=== PATIENT | female | born 1940 | race Caucasian/White ===

== ENCOUNTER 2016-05-09 10:34 | Outpatient (CLI) ==
[2016-05-09 11:07] LABS: BASOPHILS % (AUTO) 0.4 % (0.0-3.0); EOSINOPHILS # (AUTO) 0.4 K/ul (0.0-0.7); EOSINOPHILS % (AUTO) 5.7 % (0.0-7.0); HEMATOCRIT 40.6 % (37.0-47.0); HEMOGLOBIN 13.4 g/dl (12.0-16.0); IMMATURE GRANULOCYTE % (AUTO) 0.5 % (0.0-5.0); LYMPHOCYTES # (AUTO) 2.1 K/uL (0.60-3.4); LYMPHOCYTES % (AUTO) 27.3 (10.0-50.0); MEAN CORPUSCULAR HEMOGLOBIN 28.2 pg (27.0-31.0); MEAN CORPUSCULAR VOLUME 85.5 fl (81.0-99.0); MONOCYTES # (AUTO) 0.4 K/uL (0.4-2.0); MONOCYTES % (AUTO) 4.7 (0-10); NEUTROPHILS # (AUTO) 4.8 K/ul (2.0-6.9); NEUTROPHILS % (AUTO) 61.4; PLATELET COUNT 229 10^3/uL (140-440); RED BLOOD COUNT 4.75 10^6/ul (4.20-5.40); WHITE BLOOD COUNT 7.73 K/ul (4.6-10.2)
[2016-05-09 11:24] LABS: BILIRUBIN,URINE Negative (NEGATIVE); KETONES,URINE Negative (NEGATIVE); LEUKOCYTE ESTERASE ,URINE Negative (NEGATIVE); NITRITE,URINE Negative (NEGATIVE); PH,URINE 6.5 (5-9); PROTEIN,URINE Negative (NEGATIVE); URINE, BLOOD Negative (NEGATIVE)
[2016-05-09 11:38] LABS: ADD URINE MICROSCOPIC NO
[2016-05-09 11:50] LABS: ALBUMIN 3.3 g/dL (3.4-5.0); ALBUMIN/GLOBULIN RATIO 0.92; ANION GAP 13.1; BILIRUBIN,TOTAL 0.51 mg/dL (0.00-1.20); BUN/CREATININE RATIO 18.18; CALCIUM 9.2 mg/dL (8.2-10.2); CHOL/HDL RATIO 3.5 (4.5-5.5); CREATININE 1.32 mg/dL (0.60-1.30); POTASSIUM 4.1 mmol/L (3.5-5.10); TOTAL PROTEIN 6.9 g/dL (5.8-8.1)
--- NOTE | 2016-05-09 11:59 | DI ---
EXAM: Two views of the chest. History: Short of breath Findings: Heart size is normal. No focal consolidation. No appreciable pleural fluid and no pneum othorax. Atherosclerotic vascular calcifications. Degenerative changes of the thoracic spine. Impression: No acute cardiopulmonary process.
== END 2016-05-09 10:35 | disposition home or self-care (01) ==
LOC: CAR 10:34
PROVIDERS: ATTEND Family Medicine
DX: I10 Essential (primary) hypertension (principal); E11.9 Type 2 diabetes mellitus without complications; E78.5 Hyperlipidemia, unspecified; I48.91 Unspecified atrial fibrillation; R06.02 Shortness of breath; I25.10 Atherosclerotic heart disease of native coronary artery without angina pectoris; E66.9 Obesity, unspecified; N18.9 Chronic kidney disease, unspecified; N30.00 Acute cystitis without hematuria; F01.50 Vascular dementia, unspecified severity, without behavioral disturbance, psychotic disturbance, mood disturbance, and anxiety; I50.9 Heart failure, unspecified
CPT/HCPCS: 36415; 80053; 80061; 81001; 83036; 83880; 84439; 84443; 85025; 93005; 93010

== ENCOUNTER 2016-06-24 10:13 | Outpatient (CLI) ==
--- NOTE | 2016-06-24 10:59 | US ---
EXAM: Carotid ultrasound HISTORY: Hypertension, vertigo, diabetes mellitus COMPARISON: 06/24/2015 TECHNIQUE: Carotid ultrasound was performed using van scale, color, and Doppler imaging was perfor med. FINDINGS: Right carotid: There is mild atherosclerotic plaque with visual estimate of narrowing less than 50% . Peak systolic velocity measurement in the proximal right internal carotid artery is 0.8 meters pe r second. End-diastolic velocity measurement in the right internal carotid artery is 0.1 meters per second. Right internal to common carotid artery peak systolic velocity ratio is 1.0. Mildly increa sed velocity of the distal aspect internal carotid artery at 1.3 meters per second likely due to tor tuous vessel without visualized narrowing in this region. Flow in the right vertebral artery is ante grade. Left carotid: There is mild atherosclerotic plaque with visual estimate of narrowing less than 50%. Peak systolic velocity measurement in the left internal carotid artery is 0.8 meters per second. End-diastolic velocity measurement in the left internal carotid artery is 0.2 meters per second. Le ft internal to common carotid artery peak systolic velocity ratio measures 1.0. Mildly increased jess ocity of the distal aspect internal carotid artery at 1.4 meters per second likely due to tortuous v essel without visualized narrowing in this region. Left vertebral artery not visualized. IMPRESSION: 1. Right internal carotid: Probably mild (less than 50%) stenosis 2. Left internal carotid: Probably mild (less than 50%) stenosis. 3. Left vertebral artery not visualized. On the prior examination, antegrade flow was demonstrated in the left vertebral artery. 4. Antegrade flow right vertebral artery.
== END 2016-06-24 10:14 | disposition home or self-care (01) ==
LOC: RAD 10:13
PROVIDERS: ATTEND Family Medicine
DX: E03.9 Hypothyroidism, unspecified (principal); I10 Essential (primary) hypertension; E11.9 Type 2 diabetes mellitus without complications; R42 Dizziness and giddiness; E66.9 Obesity, unspecified

== ENCOUNTER 2016-07-12 07:26 | Outpatient (CLI) ==
[2016-07-12 08:24] LABS: BASOPHILS # (AUTO) 0.1 K/uL (0-0.2); BASOPHILS % (AUTO) 0.8 % (0.0-3.0); EOSINOPHILS # (AUTO) 0.4 K/ul (0.0-0.7); EOSINOPHILS % (AUTO) 5.5 % (0.0-7.0); HEMATOCRIT 40.2 % (37.0-47.0); HEMOGLOBIN 13.4 g/dl (12.0-16.0); IMMATURE GRANULOCYTE % (AUTO) 0.1 % (0.0-5.0); LYMPHOCYTES # (AUTO) 2.6 K/uL (0.60-3.4); LYMPHOCYTES % (AUTO) 32.9 (10.0-50.0); MEAN CORPUSCULAR HEMOGLOBIN 28.3 pg (27.0-31.0); MEAN CORPUSCULAR HGB CONC 33.3 (31.8-35.4); MONOCYTES # (AUTO) 0.4 K/uL (0.4-2.0); NEUTROPHILS # (AUTO) 4.4 K/ul (2.0-6.9); NEUTROPHILS % (AUTO) 55.7; PLATELET COUNT 235 10^3/uL (140-440); RED BLOOD COUNT 4.73 10^6/ul (4.20-5.40); WHITE BLOOD COUNT 7.87 K/ul (4.6-10.2)
[2016-07-12 08:30] LABS: BILIRUBIN,URINE Negative (NEGATIVE); KETONES,URINE Negative (NEGATIVE); LEUKOCYTE ESTERASE ,URINE Negative (NEGATIVE); NITRITE,URINE Negative (NEGATIVE); PH,URINE 5.5 (5-9); PROTEIN,URINE Negative (NEGATIVE); URINE, BLOOD Negative (NEGATIVE)
[2016-07-12 08:33] LABS: ADD URINE MICROSCOPIC NO
[2016-07-12 10:02] LABS: ALBUMIN 3.3 g/dL (3.4-5.0); ALBUMIN/GLOBULIN RATIO 0.97; ANION GAP 11.4; BILIRUBIN,TOTAL 0.64 mg/dL (0.00-1.20); BUN/CREATININE RATIO 16.15; CALCIUM 9.5 mg/dL (8.2-10.2); CHOL/HDL RATIO 3.2 (4.5-5.5); CREATININE 1.3 mg/dL (0.60-1.30); POTASSIUM 4.4 mmol/L (3.5-5.10); TOTAL PROTEIN 6.7 g/dL (5.8-8.1)
== END 2016-07-12 07:27 | disposition home or self-care (01) ==
LOC: LAB 07:26
PROVIDERS: ATTEND Family Medicine
DX: I10 Essential (primary) hypertension (principal); E11.9 Type 2 diabetes mellitus without complications; E03.9 Hypothyroidism, unspecified; E66.9 Obesity, unspecified; Z79.899 Other long term (current) drug therapy
CPT/HCPCS: 36415; 80053; 80061; 81001; 84439; 84443; 85025

== ENCOUNTER 2016-08-10 08:36 | Outpatient (CLI) ==
[2016-08-10 09:56] LABS: ERYTHROCYTE SEDIMENTATION RATE 35 mm/hr (0-20); ESR INTERNAL QC INTERNAL QC VALID
[2016-08-10 10:14] LABS: MAGNESIUM 1.7 mg/dL (1.7-2.2)
[2016-08-10 11:23] LABS: FOLATE 33.3 ng/mL (3.1-20.5)
== END 2016-08-10 08:37 | disposition home or self-care (01) ==
LOC: LAB 08:36
PROVIDERS: ATTEND Psychiatry & Neurology Neurology
DX: R41.3 Other amnesia (principal)
CPT/HCPCS: 36415; 82607; 82746; 83735; 84439; 85651

== ENCOUNTER 2016-09-16 07:49 | Outpatient (CLI) ==
[2016-09-16 08:29] LABS: BASOPHILS # (AUTO) 0.1 K/uL (0-0.2); BASOPHILS % (AUTO) 0.8 % (0.0-3.0); BILIRUBIN,URINE 1+ (NEGATIVE); EOSINOPHILS # (AUTO) 0.4 K/ul (0.0-0.7); EOSINOPHILS % (AUTO) 4.9 % (0.0-7.0); HEMATOCRIT 38.8 % (37.0-47.0); IMMATURE GRANULOCYTE % (AUTO) 0.3 % (0.0-5.0); KETONES,URINE Negative (NEGATIVE); LEUKOCYTE ESTERASE ,URINE Negative (NEGATIVE); LYMPHOCYTES # (AUTO) 2.1 K/uL (0.60-3.4); LYMPHOCYTES % (AUTO) 27.9 (10.0-50.0); MEAN CORPUSCULAR HEMOGLOBIN 28.2 pg (27.0-31.0); MEAN CORPUSCULAR HGB CONC 33.5 (31.8-35.4); MEAN CORPUSCULAR VOLUME 84.2 fl (81.0-99.0); MONOCYTES # (AUTO) 0.4 K/uL (0.4-2.0); MONOCYTES % (AUTO) 5.3 (0-10); NEUTROPHILS # (AUTO) 4.6 K/ul (2.0-6.9); NEUTROPHILS % (AUTO) 60.8; NITRITE,URINE Negative (NEGATIVE); PH,URINE 5.5 (5-9); PLATELET COUNT 220 10^3/uL (140-440); PROTEIN,URINE Negative (NEGATIVE); RED BLOOD COUNT 4.61 10^6/ul (4.20-5.40); URINE, BLOOD Negative (NEGATIVE); WHITE BLOOD COUNT 7.55 K/ul (4.6-10.2)
[2016-09-16 08:31] LABS: ADD URINE MICROSCOPIC NO
[2016-09-16 09:06] LABS: ALBUMIN 3.4 g/dL (3.4-5.0); ALBUMIN/GLOBULIN RATIO 1.1; ANION GAP 14.9; BILIRUBIN,TOTAL 0.9 mg/dL (0.00-1.20); BUN/CREATININE RATIO 17.6; CALCIUM 9.3 mg/dL (8.2-10.2); CHOL/HDL RATIO 3.1 (4.5-5.5); CREATININE 1.42 mg/dL (0.60-1.30); POTASSIUM 3.9 mmol/L (3.5-5.10); TOTAL PROTEIN 6.5 g/dL (5.8-8.1)
== END 2016-09-16 07:50 | disposition home or self-care (01) ==
LOC: LAB 07:49
PROVIDERS: ATTEND Family Medicine
DX: E78.5 Hyperlipidemia, unspecified (principal); I48.91 Unspecified atrial fibrillation; E66.9 Obesity, unspecified; I25.10 Atherosclerotic heart disease of native coronary artery without angina pectoris; N30.00 Acute cystitis without hematuria; F01.50 Vascular dementia, unspecified severity, without behavioral disturbance, psychotic disturbance, mood disturbance, and anxiety; I13.10 Hypertensive heart and chronic kidney disease without heart failure, with stage 1 through stage 4 chronic kidney disease, or unspecified chronic kidney disease; E11.22 Type 2 diabetes mellitus with diabetic chronic kidney disease; N18.9 Chronic kidney disease, unspecified; Z79.899 Other long term (current) drug therapy
CPT/HCPCS: 36415; 80053; 80061; 81001; 83036; 84439; 84443; 85025

== ENCOUNTER 2024-02-26 14:05 | Inpatient (IN) ==
--- NOTE | 2024-02-26 14:52 | ED.PDOC ---
General ED Provider: Dr. KIARA CARROLL MD Chief Complaint: Non-specific Complaint Stated Complaint: 83 yo WF brought in by EMS after calls when patient has difficulty getting around with her walker. Hx of dementia, DM, HTN and Afib and on Xarelto. said patient usually have some difficulty getting up out of a chair when seated but today, she had some problem moving her legs in a coordinating gait. She uses a walker. No falls recently. He reports her appetite not so good and not eating since the evening meals. Patient herself said she feels "fine" and no pain. Denies thirst. No cough or fever. No chest pain. Time Seen by Provider: 02/26/24 14:36 Mode of Arrival: Ambulance Information Source: Patient and Family Exam Limitations: Dementia Primary Care Provider: RAUL ABDULLAHI MD Referred to ED by: Other (family) Nursing and Triage Documentation Reviewed and Agree: Yes Does Patient Take Opioids?: No What is Opioid Naive?: *Opioid Naive implies the patient is not already taking opioids or not chronically receiving opioids on a daily basis. *PRN dosing is not "usually" associated with tolerance. *Patients are at higher risk of over-sedation and aspiration. What is Opioid Tolerant?: *Opioid Tolerance implies less than the expected response to an opioid. *Acquired tolerance is defined by the patient taking 60mg of oral morphine daily (or equianalgesic dose of another opioid) for 1 week or more. *Often associated with chronic pain. *May take more than usual dose to achieve desired pain control. Review of Systems Review Of Systems Constitutional: Reports Weakness and Loss of appetite; Denies Chills or Fever Eyes: Reports No symptoms Respiratory: Denies Cough or Shortness of Breath Cardiac: Denies Chest pain or Syncope GI: Denies Abdominal pain or Vomiting : Denies Hematuria Musculoskeletal: Denies Back pain, Joint pain or Joint swelling Skin: Reports No symptoms Neurological: Reports Cognitive dysfunction; Denies Emotional problems or Headache PFSH Family History FATHER Diabetes Mother CHF (congestive heart failure) SISTER COVID-19 vlad hauler COVID Cardiac abnormality Social History Smoking and tobacco status: Never smoker Alcohol intake: never Substance use type: does not use Special irma needs: No Agree to transfusion: Yes Adopted: No Caregiver/support person: No Foster care: No Household members: spouse Housing: apartment Marital status: M Lives independently: Yes Daycare: no daycare Number of children: 0 Current occupational status: retired History of recent travel: No Do you think of yourself as: straight/heterosexual Current gender identity: female Seatbelt use: sometimes Drives intoxicated or rides with intoxicated pick up driver: No Water heater temperature set < 120 degrees: Yes Working smoke detector in home: Yes Fire extinguisher in home: No Carbon monoxide detector in home: No Firearms in home: No Physical Exam Physical Exam Appearance: Reports Well-appearing, No pain distress and Obese Ill-appearing: None Pain Distress: None Eyes: Reports LESLIE and EOMI ENT: Reports Ears normal, Nose normal and Oropharynx normal Neck: Supple Respiratory: Reports Airway patent, Breath sounds equal and Respirations nonlabored; Denies Breath sounds diminished, Wheezes or Retractions Cardiovascular: Reports RRR, Pulses normal, No rub and No murmur GI/: Reports Soft, Nontender, No masses and Bowel sounds normal; Denies Tender or Mass Musculoskeletal: Reports Normal strength, ROM intact and No calf tenderness Skin: Reports Warm, Dry and Normal color Neurological: Reports Motor intact Psychiatric: Reports Affect appropriate, Mood appropriate and Other (laughs when grabbing my fingers on command. Able to grab fingers with both hand when asked to do Finger to nose testing) Course Course 02/26/24 15:16 02/26/24 15:16 Orders, Labs, Meds: Lab Review 02/26/24 02/26/24 15:10 15:16 WBC 10.66 H RBC 4.28 Hgb 10.6 L Hct 35.8 L MCV 83.6 MCH 24.8 L MCHC 29.6 L RDW Coeff of Temo 17.4 H Plt Count 251 Immature Gran % (Auto) 0.4 Neut % (Auto) 83.5 H Lymph % (Auto) 8.4 L [place] % (Auto) 6.3 Eos % (Auto) 1.1 Baso % (Auto) 0.3 Neut # (Auto) 8.9 H Lymph # (Auto) 0.9 [place] # (Auto) 0.7 Eos # (Auto) 0.1 Baso # (Auto) 0.0 Immature Gran # (Auto) 0.0 Sodium 137.6 Potassium 3.96 Chloride 102.1 Carbon Dioxide 25.2 Anion Gap 14.26 BUN 35.6 H Creatinine 2.68 H Estimated GFR (MDRD) 17.00 BUN/Creatinine Ratio 13.28 Glucose 173.3 H Calcium 9.37 Total Bilirubin 0.86 AST 19.1 ALT 12.9 Alkaline Phosphatase 65.6 Total Protein 6.78 Albumin 3.76 Globulin 3.02 Albumin/Globulin Ratio 1.24 Urine Color Yellow Urine Clarity Cloudy Urine pH 5.5 Ur Specific [place] 1.025 Urine Protein Negative Urine Glucose (UA) Negative Urine Ketones Negative Urine Blood Trace-intact H Urine Nitrite Negative Urine Bilirubin Negative Urine Urobilinogen 0.2 Ur Leukocyte Esterase 1+ H Urine Microscopic WBC 20-30 Ur Squamous Epith Cells 10-20 Amorphous Sediment 3+ Urine Bacteria 4+ Hyaline Casts 0-2 Orders Category Date Time Status Saline Lock [ED IV/MEDIPORT/POWERPORT] .ONCE EMERGENCY 02/26/24 14:45 Active CBC W/ AUTO DIFF Stat LAB 02/26/24 15:16 Completed CMP [COMPREHENSIVE METABOLIC PANEL] Stat LAB 02/26/24 15:16 Completed COVID [SARS COV-2 RNA RAPID RUBY] Stat LAB 02/26/24 16:36 Ordered URINALYSIS C & S IF INDICATED Stat LAB 02/26/24 15:10 Completed URINE CULTURE Stat LAB 02/26/24 15:10 Received 0.9 % Sodium Chloride [Saline Flush] Meds 02/26/24 14:45 Active 1 syr IVF PRN PRN Ceftriaxone/D5w 1 gm Premix [Rocephin 1 gm/50 ml D5w] Meds 02/26/24 16:30 Active 1 gm in 50 ml IV DAILY Sodium Chloride 0.9% [Sodium Chloride] 1,000 ml Meds 02/26/24 15:34 Active IV 125 mls/hr CHEST, 1V AP ONLY Stat RADS 02/26/24 15:[address] HEAD W/O CONTRAST Stat RADS 02/26/24 14:45 Completed Medications Generic Name Dose Route Start Last Admin Trade Name Freq PRN Reason Stop Dose Admin Sodium Chloride 1,000 mls @ 125 mls/hr 02/26/24 15:34 Sodium Chloride IV 02/26/24 23:33 .Q8H ONE CEFTRIAXONE/D5W 1 GM PREMIX 1 gm in 50 mls @ 100 mls/hr 02/26/24 16:30 Rocephin 1 Gm/50 Ml D5w IV 02/29/24 16:29 DAILY ROCKY Sodium Chloride 1 syr 02/26/24 14:45 0.9% Sodium Chloride 10 Ml Disp.Syrin IVF PRN PRN To flush IV Abdullahi's office notified about OBS admit. Discussed with Sharita Henderson, hospitalist, and will admit. Reviewed her chemistry compared to previous Vital Signs: Temp Pulse Resp BP Pulse Ox 02/26/24 14:07 97.6 F 65 20 134/58 L 95 Discharge Plan Discharge Patient Disposition: PLACED OBSERVATION Discharge Problem: Weakness, Urinary tract infection, Chronic kidney disease (CKD) Did you review [place] [employer] for ALL controlled substances?: Not Applicable ED Provider: KIARA CARROLL Condition: Fair
--- NOTE | 2024-02-26 15:18 | CT ---
EXAMINATION: HEAD CT WITHOUT CONTRAST HISTORY: Altered mental status. On xarelto. TECHNIQUE: Noncontrast CT of the brain was performed with images acquired from skull base to vertex. 2-D coronal and sagittal reformatted images were obtained from the axial source images. Contrast Dose: None. CT Dose Reduction Techniques Performed: Yes. COMPARISON: 12/17/2022 FINDINGS: No intracranial hemorrhage. No mass, mass effect or extra-axial fluid collection. There is age-rela yaakov parenchymal volume loss with resultant prominence of the supratentorial CSF spaces. No hydroceph alous. The basal cisterns are patent. Patchy areas of white matter hypoattenuation are nonspecific but favored to represent sequelae of chronic small vessel ischemic disease. No acute territorial inf arct. The paranasal sinuses and mastoid air cells are clear. No calvarial fracture or suspicious os seous lesion. IMPRESSION: 1. No acute intracranial process. 2. Stable parenchymal atrophy and chronic microvascular disease. All CT scans are performed using dose optimization techniques as appropriate to the performed exam an d include at least one of the following: Automated exposure control, adjustment of the mA and/or kV according t o size, and the use of iterative reconstruction technique.
[2024-02-26 15:20] LABS: BASOPHILS % (AUTO) 0.3 % (0.0-3.0); EOSINOPHILS # (AUTO) 0.1 K/ul (0.0-0.7); EOSINOPHILS % (AUTO) 1.1 % (0.0-7.0); HEMATOCRIT 35.8 % (37.0-47.0); HEMOGLOBIN 10.6 g/dl (12.0-16.0); IMMATURE GRANULOCYTE % (AUTO) 0.4 % (0.0-5.0); LYMPHOCYTES # (AUTO) 0.9 K/uL (0.60-3.4); LYMPHOCYTES % (AUTO) 8.4 (10.0-50.0); MEAN CORPUSCULAR HEMOGLOBIN 24.8 pg (27.0-31.0); MEAN CORPUSCULAR HGB CONC 29.6 (31.8-35.4); MEAN CORPUSCULAR VOLUME 83.6 fl (81.0-99.0); MONOCYTES # (AUTO) 0.7 K/uL (0.4-2.0); MONOCYTES % (AUTO) 6.3 (0-10); NEUTROPHILS # (AUTO) 8.9 K/ul (2.0-6.9); NEUTROPHILS % (AUTO) 83.5 % (42.2-75.2); PLATELET COUNT 251 10^3/uL (140-440); RDW COEFFICIENT OF VARIATION 17.4 % (11.6-14.8); RED BLOOD COUNT 4.28 10^6/ul (4.20-5.40); WHITE BLOOD COUNT 10.66 K/ul (4.6-10.2)
[2024-02-26 15:27] LABS: BILIRUBIN,URINE Negative (NEGATIVE); CLARITY,URINE Cloudy (CLEAR); COLOR,URINE Yellow (YELLOW); GLUCOSE, URINE (UA) Negative (NEGATIVE); KETONES,URINE Negative (NEGATIVE); LEUKOCYTE ESTERASE ,URINE 1+ (NEGATIVE); NITRITE,URINE Negative (NEGATIVE); PH,URINE 5.5 (5-9); PROTEIN,URINE Negative (NEGATIVE); URINE, BLOOD Trace-intact (NEGATIVE); UROBILINOGEN,URINE 0.2 (0.2)
[2024-02-26 15:35] LABS: AMORPHOUS SEDIMENT,UR 3+ (NOT PRESENT); BACTERIA,URINE 4+ (NOT PRESENT); HYALINE CASTS, URINE 0-2 (NOT PRESENT); URINE WBC, MICROSCOPIC 20-30 (0-2)
[2024-02-26 15:38] LABS: ALANINE AMINOTRANSFERASE 12.9 U/L (0-35); ALBUMIN 3.76 g/dL (3.5-5.0); ALKALINE PHOSPHATASE 65.6 U/L (53-141); ASPARTATE AMINO TRANSFERASE 19.1 U/L (14-36); BILIRUBIN,TOTAL 0.86 mg/dL (0.2-1.3); BLOOD UREA NITROGEN 35.6 mg/dL (7-17); CALCIUM 9.37 mg/dL (8.4-10.2); CARBON DIOXIDE 25.2 mmol/L (22-30.0); CHLORIDE 102.1 mmol/L (98-107); CREATININE 2.68 mg/dL (0.60-1.30); GLUCOSE 173.3 mg/dL (74-106); POTASSIUM 3.96 mmol/L (3.5-5.1); SODIUM 137.6 mmol/L (134.5-145); TOTAL PROTEIN 6.78 g/dL (6.3-8.2)
--- NOTE | 2024-02-26 15:53 | DI ---
EXAM: CHEST RADIOGRAPH TECHNIQUE: Single frontal chest radiograph. HISTORY: Weakness. COMPARISON: 10/12/2023 FINDINGS: No pulmonary infiltrate is identified. No pleural effusion or pneumothorax is seen. Heart size is normal. No acute displaced rib fractures are identified. IMPRESSION: 1. No acute findings in the chest.
[2024-02-26] MEDS ORDERED: ZOFRAN SDV IVP PRN (16:39)
[2024-02-26] MEDS ORDERED: TYLENOL PO PRN (16:39)
[2024-02-26] MEDS: SODIUM CHLORIDE 1,000 ML IV ONE (16:45)
[2024-02-26] MEDS: ROCEPHIN 1 GM/50 ML D5W 1 GM/50 ML BAG IV SCH (16:46)
[2024-02-26 16:54] LABS: SARS COV-2 RNA RAPID NAAT NEGATIVE (NEGATIVE)
[2024-02-26 18:14] VITALS: BMI 33.8
[2024-02-26] MEDS: LIPITOR PO SCH (19:48)
[2024-02-26] MEDS: XARELTO PO SCH (19:48)
[2024-02-26] MEDS: NAMENDA PO SCH (20:26)
[2024-02-27] MEDS: ATIVAN IVP ONE (01:15)
[2024-02-27 05:19] LABS: BASOPHILS % (AUTO) 0.4 % (0.0-3.0); EOSINOPHILS # (AUTO) 0.1 K/ul (0.0-0.7); EOSINOPHILS % (AUTO) 1.6 % (0.0-7.0); HEMATOCRIT 31.6 % (37.0-47.0); HEMOGLOBIN 9.4 g/dl (12.0-16.0); IMMATURE GRANULOCYTE % (AUTO) 0.1 % (0.0-5.0); LYMPHOCYTES # (AUTO) 1.2 K/uL (0.60-3.4); LYMPHOCYTES % (AUTO) 15.3 (10.0-50.0); MEAN CORPUSCULAR HEMOGLOBIN 24.6 pg (27.0-31.0); MEAN CORPUSCULAR HGB CONC 29.7 (31.8-35.4); MEAN CORPUSCULAR VOLUME 82.7 fl (81.0-99.0); MONOCYTES # (AUTO) 0.6 K/uL (0.4-2.0); MONOCYTES % (AUTO) 7.7 (0-10); NEUTROPHILS # (AUTO) 5.8 K/ul (2.0-6.9); NEUTROPHILS % (AUTO) 74.9 % (42.2-75.2); PLATELET COUNT 217 10^3/uL (140-440); RDW COEFFICIENT OF VARIATION 17.5 % (11.6-14.8); RED BLOOD COUNT 3.82 10^6/ul (4.20-5.40); WHITE BLOOD COUNT 7.67 K/ul (4.6-10.2)
[2024-02-27] MEDS: SYNTHROID PO SCH (05:23)
[2024-02-27 05:33] LABS: ALANINE AMINOTRANSFERASE 12.1 U/L (0-35); ALBUMIN 3.29 g/dL (3.5-5.0); ALKALINE PHOSPHATASE 56.4 U/L (53-141); ASPARTATE AMINO TRANSFERASE 22.7 U/L (14-36); BILIRUBIN,TOTAL 0.56 mg/dL (0.2-1.3); BLOOD UREA NITROGEN 33.4 mg/dL (7-17); CALCIUM 8.77 mg/dL (8.4-10.2); CARBON DIOXIDE 26.2 mmol/L (22-30.0); CHLORIDE 105.6 mmol/L (98-107); CREATININE 2.45 mg/dL (0.60-1.30); POTASSIUM 4.05 mmol/L (3.5-5.1); SODIUM 137.1 mmol/L (134.5-145); TOTAL PROTEIN 6.19 g/dL (6.3-8.2)
[2024-02-27] MEDS: FERROUS SULFATE PO SCH (09:16)
[2024-02-27] MEDS: DITROPAN XL PO SCH (09:16)
[2024-02-27] MEDS: COZAAR PO SCH (09:17)
[2024-02-27] MEDS: ARICEPT PO SCH (09:17)
[2024-02-27] MEDS: TOPROL XL PO SCH (09:17)
[2024-02-27] MEDS: ROCEPHIN 1 GM/50 ML D5W 1 GM/50 ML BAG IV SCH (09:18)
[2024-02-27] MEDS: LANTUS SUBCUT SCH (09:56)
--- NOTE | 2024-02-27 12:11 | PCM ---
Date of Service Date Seen by Provider: 02/27/24 Time Seen by Provider: 08:45 Admit Day/Time Admission Date: 02/26/24 Admission Time: 16:37 Reason for Admission Chief Complaint: WEAKNESS, UTI, ACUTE ON CHRONIC KIDNEY INJURY Hospital Provider Hospital Provider: ALEX MENDOZA PA-C, [facility] [place] [facility] Care Physician Primary Care Physician: RAUL NEWTON MD History of Present Illness History of Present Illness: Patient is an 83 year old female from home with pmhx of hypertension, DMT2, a fib, hypothyroidism, CKD, and dementia who presented to the ER with weakness. Patient's provides the history due to patient's dementia. He states she was having difficulty getting out of her chair. Her gait was unsteady. She's also had decreased appetite. He was worried she could have a UTI as this is common for her. In the ER her labs were unremarkable except for mildly elevated wbc count, and UA showed suspect UTI. She was given rocephin. Admitted to med surg. Case Discussed With Case Discussed With: Patient's case was discussed with the ER Physicians, Dr. Zapata. [facility] Surgical History History of breast biopsy Z98.890 - Other specified postprocedural states (ICD-10) History of appendectomy Z90.49 - Acquired absence of other specified parts of digestive tract (ICD- 10) Family History FATHER Diabetes Mother CHF (congestive heart failure) SISTER COVID-19 long hauler COVID Cardiac abnormality Social History Smoking and tobacco status: Never smoker Alcohol intake: never Substance use type: does not use Special irma needs: No Agree to transfusion: Yes Adopted: No Caregiver/support person: No Foster care: No Household members: spouse Housing: apartment Marital status: M Lives independently: Yes Daycare: no daycare Number of children: 0 Current occupational status: retired History of recent travel: No Do you think of yourself as: straight/heterosexual Current gender identity: female Seatbelt use: sometimes Drives intoxicated or rides with intoxicated school bus driver/teacher assistant: No Water heater temperature set < 120 degrees: Yes Working smoke detector in home: Yes Fire extinguisher in home: No Carbon monoxide detector in home: No Firearms in home: No Allergies Allergies Allergy/AdvReac Type Severity Reaction Status Date / Time No Known Allergies Allergy Verified 12/18/23 10:00 Current Medications Home Medications atorvastatin 20 mg tablet 20 mg PO DAILY 04/26/21 [History Confirmed 02/26/24 Last Taken 02/24/24] pen needle, diabetic 31 gauge x 3/16" (BD Ultra-Fine Mini Pen Needle) #100 inserts 02/07/23 [Rx Confirmed 02/26/24 Last Taken Unknown] nystatin 100,000 unit/gram topical cream 1 applic topical BID #30 grams 06/29/23 [Rx Confirmed 02/26/24 Last Taken 02/24/24] insulin aspart (niacinamide)(U-100) 100 unit/mL(3 mL) subcutaneous pen (Fiasp FlexTouch U-100 Insulin) 13 unit subcut QACLUNCH #15 mL 07/10/23 [Rx Confirmed 02/26/24 Last Taken 02/24/24] insulin lispro 100 unit/mL subcutaneous pen (Humalog KwikPen (U-100) Insulin) 13 unit (0.13 mL) subcut ONCE #15 mL 07/10/23 [Rx Confirmed 02/26/24 Last Taken 02/24/24] rivaroxaban 15 mg tablet (Xarelto) 15 mg PO DAILY 08/24/23 [History Confirmed 02/26/24 Last Taken 02/24/24] ferrous sulfate 325 mg (65 mg iron) tablet 325 mg PO QDAY #7 tabs 12/19/23 [Rx Confirmed 02/26/24 Last Taken 02/24/24] insulin glargine 100 unit/mL (3 mL) subcutaneous pen (Basaglar KwikPen U-100 Insulin) 40 unit (0.4 mL) subcut DAILY #15 mL 12/27/23 [Rx Confirmed 02/26/24 Last Taken 02/24/24] levothyroxine 75 mcg tablet 75 mcg PO DAILY #30 tabs 01/25/24 [Rx Confirmed 02/26/24 Last Taken 02/26/24] oxybutynin chloride 5 mg tablet,extended release 24 hr 5 mg PO DAILY #90 tabs 01/25/24 [Rx Confirmed 02/26/24 Last Taken 02/24/24] blood sugar diagnostic (Pharmacist Choice Glucose Test Strips) #100 ea 02/05/24 [Rx Confirmed 02/26/24 Last Taken Unknown] blood-glucose meter #1 ea 02/05/24 [Rx Confirmed 02/26/24 Last Taken Unknown] lancets 21 gauge (Color Lancets) #100 ea 02/05/24 [Rx Confirmed 02/26/24 Last Taken Unknown] cholecalciferol (vitamin D3) 1,250 mcg (50,000 unit) capsule See Rx Instructions .Route .COMPLEX #12 caps 02/22/24 [Rx Confirmed 02/26/24 Last Taken 02/24/24] furosemide 20 mg tablet 20 mg PO DAILY #30 tabs 02/22/24 [Rx Confirmed 02/26/24 Last Taken 02/24/24] losartan 100 mg tablet 100 mg PO DAILY #90 tabs 02/22/24 [Rx Confirmed 02/26/24 Last Taken 02/24/24] memantine ER 28 mg-donepezil 10 mg capsule sprinkle,ext.release 24 hr (Namzaric) See Rx Instructions .Route .COMPLEX #90 caps 02/22/24 [Rx Confirmed 02/26/24 Last Taken 02/24/24] metoprolol succinate 50 mg tablet,extended release 24 hr See Rx Instructions .Route .COMPLEX #90 ea 02/22/24 [Rx Confirmed 02/26/24 Last Taken 02/24/24] Home Acetaminophen (Acetaminophen 325 Mg Tablet) 650 mg PO Q4H PRN PRN Reason: Mild Pain Atorvastatin Calcium (Atorvastatin Calcium 20 Mg Tablet) 20 mg PO DAILY [facility] Last Admin: 02/27/24 09:17 Dose: 20 mg Donepezil HCl (Donepezil Hcl 10 Mg Tablet) 10 mg PO DAILY [facility] Last Admin: 02/27/24 09:17 Dose: 10 mg Ferrous Sulfate (Ferrous Sulfate 324 Mg Tablet.Dr) 324 mg PO DAILY [facility] Last Admin: 02/27/24 09:16 Dose: 324 mg CEFTRIAXONE/D5W 1 GM PREMIX (Rocephin 1 Gm/50 Ml D5w) 1 gm in 50 mls @ 100 mls/hr IV DAILY [facility] Stop: 03/01/24 08:59 Last Admin: 02/27/24 09:18 Dose: 100 mls/hr Insulin Glargine (Insulin Glargine,Hum.Rec.Anlog 100 Units/Ml) 40 unit SUBCUT DAILY [facility] Last Admin: 02/27/24 09:56 Dose: Not Given Insulin Human Lispro (Insulin Lispro 100 Unit/Ml (10 Ml Vial)) 0 unit SUBCUT PRN PRN; Protocol PRN Reason: Hyperglycemia Levothyroxine Sodium (Levothyroxine Sodium 75 Mcg Tablet) 75 mcg PO QDAC2 [facility] Last Admin: 02/27/24 05:23 Dose: 75 mcg Losartan Potassium (Losartan Potassium 100 Mg Tablet) 100 mg PO DAILY [facility] Last Admin: 02/27/24 09:17 Dose: 100 mg Memantine (Memantine Hcl 10 Mg Tablet) 10 mg PO BID [facility] Last Admin: 02/27/24 09:17 Dose: 10 mg Metoprolol Succinate (Metoprolol Succinate 50 Mg Tab.Er.24h) 50 mg PO DAILY [facility] Last Admin: 02/27/24 09:17 Dose: 50 mg Ondansetron HCl (Ondansetron Hcl/Pf 4 Mg/2 Ml Sdv) 4 mg IVP Q6H PRN PRN Reason: Nausea / Vomiting Oxybutynin Chloride (Oxybutynin Chloride 5 Mg Tab.Er.24) 5 mg PO DAILY [facility] Last Admin: 02/27/24 09:16 Dose: 5 mg Rivaroxaban (Rivaroxaban 10 Mg Tablet) 15 mg PO DAILY [facility] Last Admin: 02/27/24 09:18 Dose: 15 mg Sodium Chloride (0.9% Sodium Chloride 10 Ml Disp.Syrin) 1 syr IVF PRN PRN PRN Reason: To flush IV Discontinued Medications Sodium Chloride (Sodium Chloride) 1,000 mls @ 125 mls/hr IV .Q8H ONE Stop: 02/26/24 23:33 Last Infusion: 02/27/24 07:45 Dose: Infused CEFTRIAXONE/D5W 1 GM PREMIX (Rocephin 1 Gm/50 Ml D5w) 1 gm in 50 mls @ 100 mls/hr IV DAILY [facility] Stop: 02/29/24 16:29 Last Admin: 02/26/24 16:46 Dose: 100 mls/hr Non-Formulary Medication (Memantine-Donepezil [Namzaric]) 0 cap .ROUTE .COMPLEX [facility] Opioid Naive vs. Tolerant Does Patient Take Opioids?: No Is Patient Opioid Naive?: Yes What is Opioid Naive?: *Opioid Naive implies the patient is not already taking opioids or not chronically receiving opioids on a daily basis. *PRN dosing is not "usually" associated with tolerance. *Patients are at higher risk of over-sedation and aspiration. Is Patient Opioid Tolerant?: No What is Opioid Tolerant?: *Opioid Tolerance implies less than the expected response to an opioid. *Acquired tolerance is defined by the patient taking 60mg of oral morphine daily (or equianalgesic dose of another opioid) for 1 week or more. *Often associated with chronic pain. *May take more than usual dose to achieve desired pain control. Review of Systems Constitutional: Reports Fatigue, Weakness and Loss of appetite; Denies Fever Physical examination Most Recent Vital Signs: Most Recent Vital Signs Temperature 97.3 F L 02/27/24 10:00 Temperature Source Temporal Artery Scan 02/27/24 10:00 Temperature Source Infrared 02/26/24 14:07 Pulse Rate 63 02/27/24 10:00 Respiratory Rate 18 02/27/24 10:00 Blood Pressure 171/91 H 02/27/24 10:00 Blood Pressure Mean 117 02/27/24 10:00 Blood Pressure Left Arm 137/92 02/26/24 17:57 Blood Pressure Location Right Arm 02/27/24 10:00 Blood Pressure Position Sitting 02/27/24 10:00 O2 Sat by Pulse Oximetry 98 02/27/24 10:00 Oxygen Delivery Method Room Air 02/27/24 11:00 Height 5 ft 5 in 02/26/24 17:57 Weight 92.2 kg 02/26/24 17:57 Appearance: Positive No Apparent Distress and Other (+Alert, +Disoriented/baseline ); Negative Alert and Oriented x3 Skin: Positive [place], Warm, Good Turgor and Good Color; Negative Rashes HEENT: Positive Normocephalic and Atraumatic Neck: Positive Supple and Midline Trachea Chest/Lungs: Positive Clear to Auscultation Bilaterally; Negative Rales, Rhonci or Wheezes Heart: Positive RRR GI/: Positive Soft, Nontender, Bowel Sounds Normal and No Distention Neurological: Positive Cranial Nerves Intact, Alert, Disorinted and Other (+generalized weakness ) Psychiatric: Negative Oriented x4 Labs This Visit Labs This Visit: Labs This Visit 02/26/24 02/26/24 02/26/24 15:10 15:16 16:35 WBC 10.66 H RBC 4.28 Hgb 10.6 L Hct 35.8 L MCV 83.6 MCH 24.8 L MCHC 29.6 L RDW Coeff of Temo 17.4 H Plt Count 251 Immature Gran % (Auto) 0.4 Neut % (Auto) 83.5 H Lymph % (Auto) 8.4 L [place] % (Auto) 6.3 Eos % (Auto) 1.1 Baso % (Auto) 0.3 Neut # (Auto) 8.9 H Lymph # (Auto) 0.9 [place] # (Auto) 0.7 Eos # (Auto) 0.1 Baso # (Auto) 0.0 Immature Gran # (Auto) 0.0 Sodium 137.6 Potassium 3.96 Chloride 102.1 Carbon Dioxide 25.2 Anion Gap 14.26 BUN 35.6 H Creatinine 2.68 H Estimated GFR (MDRD) 17.00 BUN/Creatinine Ratio 13.28 Glucose 173.3 H Calcium 9.37 Total Bilirubin 0.86 AST 19.1 ALT 12.9 Alkaline Phosphatase 65.6 Total Protein 6.78 Albumin 3.76 Globulin 3.02 Albumin/Globulin Ratio 1.24 Urine Color Yellow Urine Clarity Cloudy Urine pH 5.5 Ur Specific [place] 1.025 Urine Protein Negative Urine Glucose (UA) Negative Urine Ketones Negative Urine Blood Trace-intact H Urine Nitrite Negative Urine Bilirubin Negative Urine Urobilinogen 0.2 Ur Leukocyte Esterase 1+ H Urine Microscopic WBC 20-30 Ur Squamous Epith Cells 10-20 Amorphous Sediment 3+ Urine Bacteria 4+ Hyaline Casts 0-2 SARS CoV-2 RNA Rapid RUBY Negative 02/27/24 04:58 WBC 7.67 RBC 3.82 L Hgb 9.4 L Hct 31.6 L MCV 82.7 MCH 24.6 L MCHC 29.7 L RDW Coeff of Temo 17.5 H Plt Count 217 Immature Gran % (Auto) 0.1 Neut % (Auto) 74.9 Lymph % (Auto) 15.3 [place]pp % (Auto) 7.7 Eos % (Auto) 1.6 Baso % (Auto) 0.4 Neut # (Auto) 5.8 Lymph # (Auto) 1.2 Tripp # (Auto) 0.6 Eos # (Auto) 0.1 Baso # (Auto) 0.0 Immature Gran # (Auto) 0.0 Sodium 137.1 Potassium 4.05 Chloride 105.6 Carbon Dioxide 26.2 Anion Gap 9.35 BUN 33.4 H Creatinine 2.45 H Estimated GFR (MDRD) 19.00 BUN/Creatinine Ratio 13.63 Glucose 181.0 H Calcium 8.77 Total Bilirubin 0.56 AST 22.7 ALT 12.1 Alkaline Phosphatase 56.4 Total Protein 6.19 L Albumin 3.29 L Globulin 2.90 Albumin/Globulin Ratio 1.13 Urine Color Urine Clarity Urine pH Ur Specific [place] Urine Protein Urine Glucose (UA) Urine Ketones Urine Blood Urine Nitrite Urine Bilirubin Urine Urobilinogen Ur Leukocyte Esterase Urine Microscopic WBC Ur Squamous Epith Cells Amorphous Sediment Urine Bacteria Hyaline Casts SARS CoV-2 RNA Rapid RUBY Microbiology This Visit 02/26/24 15:10 Urine,Catheterized Urine Culture - Preliminary Imaging Imaging: EXAM: CHEST RADIOGRAPH TECHNIQUE: Single frontal chest radiograph. HISTORY: Weakness. COMPARISON: 10/12/2023 FINDINGS: No pulmonary infiltrate is identified. No pleural effusion or pneumothorax is seen. Heart size is normal. No acute displaced rib fractures are identified. IMPRESSION: 1. No acute findings in the chest. EXAMINATION: HEAD CT WITHOUT CONTRAST HISTORY: Altered mental status. On xarelto. TECHNIQUE: Noncontrast CT of the brain was performed with images acquired from skull base to vertex. 2-D coronal and sagittal reformatted images were obtained from the axial source images. Contrast Dose: None. CT Dose Reduction Techniques Performed: Yes. COMPARISON: 12/17/2022 FINDINGS: No intracranial hemorrhage. No mass, mass effect or extra-axial fluid collection. There is age-related parenchymal volume loss with resultant prominence of the supratentorial CSF spaces. No hydrocephalous. The basal cisterns are patent. Patchy areas of white matter hypoattenuation are nonspecific but favored to represent sequelae of chronic small vessel ischemic disease. No acute territorial infarct. The paranasal sinuses and mastoid air cells are clear. No calvarial fracture or suspicious osseous lesion. IMPRESSION: 1. No acute intracranial process. 2. Stable parenchymal atrophy and chronic microvascular disease. Review Statement Review Statement: I have independently reviewed and interpreted the labs/EKGs/imaging that were ordered by the ER provider. I have reviewed all outside records that are available currently in our EMR including imaging/notes/labs from previous visits. Plan Plan: 1. UTI with associated weakness - Unsafe at home due to her weakness. Rocephin. Uc pending, has hx of some resistance on sensitivities. PTOT consult. also agreeable to home health therapy. They have workers who come in to help with meals and cleaning. 2. Asthenia - PTOT 3. Hypertension - Cont home meds 4. Hypothyroidism- Cont home meds 5. Dementia - Cont home meds 6. Hyperlipidemia - Cont home meds 7. DMT2 - states he hasn't been giving her as much insulin due to her eating less. Accuchecks, sliding scale, diabetic diet. 8. A fib - Rate controlled, cont home meds DVT Prophylaxis: Xarelto Time Spent: Greater than 80 minutes spent with patient, 50% of the time spent with this patient was devoted to counseling and coordination of care. [facility]annin minutes spent discussing advance care planning. Admit to: Made inpatient today Discussed Plan of Care with Dr. Shaila Newton. Medications Medication Orders: Medications Ordered Category Date Time Status 0.9 % Sodium Chloride [Saline Flush] Meds 02/26/24 14:45 Active 1 syr IVF PRN PRN Acetaminophen [Tylenol] Meds 02/26/24 16:39 Active 650 mg PO Q4H PRN Atorvastatin Calcium [Lipitor] Meds 02/26/24 19:20 Active 20 mg PO DAILY Ceftriaxone/D5w 1 gm Premix [Rocephin 1 gm/50 ml D5w] Meds 02/27/24 09:00 Active 1 gm in 50 ml IV DAILY Donepezil HCl [Aricept] Meds 02/27/24 09:00 Active 10 mg PO DAILY Ferrous Sulfate Meds 02/27/24 09:00 Active 324 mg PO DAILY Insulin Glargine,Hum.rec.anlog [Lantus] Meds 02/27/24 09:00 Active 40 unit SUBCUT DAILY Insulin Lispro [Humalog (10 ml Vial)] Meds 02/26/24 16:39 Active See Protocol SUBCUT PRN PRN Levothyroxine Sodium [Synthroid] Meds 02/27/24 06:00 Active 75 mcg PO QDAC2 Losartan Potassium [Cozaar] Meds 02/27/24 09:00 Active 100 mg PO DAILY Memantine HCl [Namenda] Meds 02/26/24 21:00 Active 10 mg PO BID Metoprolol Succinate [Toprol Xl] Meds 02/27/24 09:00 Active 50 mg PO DAILY Ondansetron HCl/Pf [Zofran Sdv] Meds 02/26/24 16:39 Active 4 mg IVP Q6H PRN Oxybutynin Chloride [Ditropan Xl] Meds 02/27/24 09:00 Active 5 mg PO DAILY Rivaroxaban [Xarelto] Meds 02/26/24 19:20 Active 15 mg PO DAILY
[2024-02-28 05:23] LABS: BASOPHILS % (AUTO) 0.3 % (0.0-3.0); EOSINOPHILS # (AUTO) 0.2 K/ul (0.0-0.7); EOSINOPHILS % (AUTO) 2.9 % (0.0-7.0); HEMATOCRIT 30.6 % (37.0-47.0); HEMOGLOBIN 9.2 g/dl (12.0-16.0); IMMATURE GRANULOCYTE % (AUTO) 0.3 % (0.0-5.0); LYMPHOCYTES # (AUTO) 1.2 K/uL (0.60-3.4); LYMPHOCYTES % (AUTO) 17.7 (10.0-50.0); MEAN CORPUSCULAR HEMOGLOBIN 25.1 pg (27.0-31.0); MEAN CORPUSCULAR HGB CONC 30.1 (31.8-35.4); MEAN CORPUSCULAR VOLUME 83.6 fl (81.0-99.0); MONOCYTES # (AUTO) 0.4 K/uL (0.4-2.0); MONOCYTES % (AUTO) 6.4 (0-10); NEUTROPHILS # (AUTO) 4.9 K/ul (2.0-6.9); NEUTROPHILS % (AUTO) 72.4 % (42.2-75.2); PLATELET COUNT 198 10^3/uL (140-440); RDW COEFFICIENT OF VARIATION 17.4 % (11.6-14.8); RED BLOOD COUNT 3.66 10^6/ul (4.20-5.40); WHITE BLOOD COUNT 6.83 K/ul (4.6-10.2)
[2024-02-28 05:36] LABS: ALANINE AMINOTRANSFERASE 11.9 U/L (0-35); ALBUMIN 3.12 g/dL (3.5-5.0); ALKALINE PHOSPHATASE 57.9 U/L (53-141); ASPARTATE AMINO TRANSFERASE 25.1 U/L (14-36); BILIRUBIN,TOTAL 0.48 mg/dL (0.2-1.3); BLOOD UREA NITROGEN 27.8 mg/dL (7-17); CALCIUM 8.87 mg/dL (8.4-10.2); CARBON DIOXIDE 24.1 mmol/L (22-30.0); CHLORIDE 107.2 mmol/L (98-107); CREATININE 2.11 mg/dL (0.60-1.30); GLUCOSE 160.2 mg/dL (74-106); POTASSIUM 4.14 mmol/L (3.5-5.1); SODIUM 138.2 mmol/L (134.5-145); TOTAL PROTEIN 6.01 g/dL (6.3-8.2)
--- NOTE | 2024-02-28 10:07 | PCM.PROG ---
Date/Time Seen Date Seen by Provider: 02/28/24 Time Seen by Provider: 09:00 Provider [facility] Chief Complaint Chief Complaint: WEAKNESS, UTI, ACUTE ON CHRONIC KIDNEY INJURY Subjective Subjective: No events overnight. Alert, answers basic questions. Denies pain. at bedside. Objective Appearance: Positive No Apparent Distress Chest/Lungs: Positive Clear to Auscultation Bilaterally; Negative Rales, Rhonci or Wheezes Heart: Positive RRR GI/: Positive Soft, Nontender, Bowel Sounds Normal and No Distention Neurological: Positive Cranial Nerves Intact, Alert, Disorinted and Other (+generalized weakness ) Vital Signs Vital Signs: Vital Signs: Last 24 Hours 02/27/24 11:00 02/27/24 12:00 02/27/24 13:00 Temperature Temperature Source Pulse Rate Respiratory Rate Blood Pressure Blood Pressure Mean Blood Pressure Location Blood Pressure Position O2 Sat by Pulse Oximetry Oxygen Delivery Method Room Air Room Air Room Air Telemetry Type Telemetry Monitoring Telemetry Heart Rate EKG QRS Interval Telemetry Strip Reading 02/27/24 13:00 02/27/24 14:00 02/27/24 15:00 Temperature Temperature Source Pulse Rate Respiratory Rate Blood Pressure Blood Pressure Mean Blood Pressure Location Blood Pressure Position O2 Sat by Pulse Oximetry Oxygen Delivery Method Room Air Room Air Telemetry Type Remote Telemetry Telemetry Monitoring Continues Telemetry Heart Rate 57 L EKG QRS Interval 0.07 Telemetry Strip Reading Afib 02/27/24 16:00 02/27/24 17:00 02/27/24 17:47 Temperature 98.0 F Temperature Source Temporal Artery Scan Pulse Rate 54 L Respiratory Rate 16 Blood Pressure 170/74 H Blood Pressure Mean 106 Blood Pressure Location Right Arm Blood Pressure Position Sitting O2 Sat by Pulse Oximetry 98 Oxygen Delivery Method Room Air Room Air Room Air Telemetry Type Telemetry Monitoring Telemetry Heart Rate EKG QRS Interval Telemetry Strip Reading 02/27/24 18:00 02/27/24 19:00 02/27/24 19:58 Temperature Temperature Source Pulse Rate Respiratory Rate Blood Pressure Blood Pressure Mean Blood Pressure Location Blood Pressure Position O2 Sat by Pulse Oximetry Oxygen Delivery Method Room Air Room Air Room Air Telemetry Type Telemetry Monitoring Telemetry Heart Rate EKG QRS Interval Telemetry Strip Reading 02/27/24 20:00 02/27/24 20:47 02/27/24 20:47 Temperature 97.8 F Temperature Source Temporal Artery Scan Pulse Rate 57 L Respiratory Rate 18 Blood Pressure 141/59 H Blood Pressure Mean 86 Blood Pressure Location Right Radial Artery Blood Pressure Position Supine O2 Sat by Pulse Oximetry 97 Oxygen Delivery Method Room Air Room Air Room Air Telemetry Type Telemetry Monitoring Telemetry Heart Rate EKG QRS Interval Telemetry Strip Reading 02/27/24 22:00 02/27/24 23:00 02/28/24 00:00 Temperature Temperature Source Pulse Rate Respiratory Rate Blood Pressure Blood Pressure Mean Blood Pressure Location Blood Pressure Position O2 Sat by Pulse Oximetry Oxygen Delivery Method Room Air Room Air Room Air Telemetry Type Telemetry Monitoring Telemetry Heart Rate EKG QRS Interval Telemetry Strip Reading 02/28/24 01:00 02/28/24 01:56 02/28/24 01:56 Temperature 97.1 F L Temperature Source Temporal Artery Scan Pulse Rate 86 Respiratory Rate 16 Blood Pressure 143/54 H Blood Pressure Mean 83 Blood Pressure Location Right Radial Artery Blood Pressure Position Supine O2 Sat by Pulse Oximetry 96 Oxygen Delivery Method Room Air Room Air Room Air Telemetry Type Telemetry Monitoring Telemetry Heart Rate EKG QRS Interval Telemetry Strip Reading 02/28/24 03:00 02/28/24 04:00 02/28/24 05:00 Temperature Temperature Source Pulse Rate Respiratory Rate Blood Pressure Blood Pressure Mean Blood Pressure Location Blood Pressure Position O2 Sat by Pulse Oximetry Oxygen Delivery Method Room Air Room Air Room Air Telemetry Type Telemetry Monitoring Telemetry Heart Rate EKG QRS Interval Telemetry Strip Reading 02/28/24 05:04 02/28/24 06:00 02/28/24 08:00 Temperature 98.6 F Temperature Source Temporal Artery Scan Pulse Rate 59 L Respiratory Rate 18 Blood Pressure 154/62 H Blood Pressure Mean 92 Blood Pressure Location Blood Pressure Position O2 Sat by Pulse Oximetry 96 Oxygen Delivery Method Room Air Room Air Room Air Telemetry Type Telemetry Monitoring Telemetry Heart Rate EKG QRS Interval Telemetry Strip Reading Lab Results Lab Results: Lab Results: Last 24 Hours 02/28/24 05:00 WBC 6.83 RBC 3.66 L Hgb 9.2 L Hct 30.6 L MCV 83.6 MCH 25.1 L MCHC 30.1 L RDW Coeff of Temo 17.4 H Plt Count 198 Immature Gran % (Auto) 0.3 Neut % (Auto) 72.4 Lymph % (Auto) 17.7 [place] % (Auto) 6.4 Eos % (Auto) 2.9 Baso % (Auto) 0.3 Neut # (Auto) 4.9 Lymph # (Auto) 1.2 [place] # (Auto) 0.4 Eos # (Auto) 0.2 Baso # (Auto) 0.0 Immature Gran # (Auto) 0.0 Sodium 138.2 Potassium 4.14 Chloride 107.2 H Carbon Dioxide 24.1 Anion Gap 11.04 BUN 27.8 H Creatinine 2.11 H Estimated GFR (MDRD) 22.00 BUN/Creatinine Ratio 13.17 Glucose 160.2 H Calcium 8.87 Total Bilirubin 0.48 AST 25.1 ALT 11.9 Alkaline Phosphatase 57.9 Total Protein 6.01 L Albumin 3.12 L Globulin 2.89 Albumin/Globulin Ratio 1.07 Additional Comments Additional Comments: I have independently reviewed and interpreted the labs/EKGs/imaging ordered during this hospital stay. I have reviewed outside records that are available in our EMR that pertain to medical stay including imaging/notes/labs from previous visits. Active Medications Active Medications: Medications Generic Name Dose Route Start Last Admin Trade Name Freq PRN Reason Stop Dose Admin Acetaminophen 650 mg 02/26/24 16:39 Acetaminophen 325 Mg Tablet PO Q4H PRN Mild Pain Atorvastatin Calcium 20 mg 02/26/24 19:20 02/28/24 08:28 Atorvastatin Calcium 20 Mg Tablet PO 20 mg DAILY [facility]OCKY Administration Donepezil HCl 10 mg 02/27/24 09:00 02/28/24 08:31 Donepezil Hcl 10 Mg Tablet PO 10 mg DAILY [facility] Administration Ferrous Sulfate 324 mg 02/27/24 09:00 02/28/24 08:29 Ferrous Sulfate 324 Mg Tablet. PO 324 mg DAILY [facility] Administration CEFTRIAXONE/D5W 1 GM PREMIX 1 gm in 50 mls @ 100 mls/hr 02/27/24 09:00 02/28/24 08:28 Rocephin 1 Gm/50 Ml D5w IV 03/01/24 08:59 100 mls/hr DAILY [facility] Administration Insulin Glargine 40 unit 02/27/24 09:00 02/27/24 09:56 Insulin Glargine,Hum.Rec.Anlog 100 Units/Ml SUBCUT Not Given DAILY [facility] Insulin Human Lispro 0 unit 02/26/24 16:39 Insulin Lispro 100 Unit/Ml (10 Ml Vial) SUBCUT PRN PRN Hyperglycemia Protocol Levothyroxine Sodium 75 mcg 02/27/24 06:00 02/28/24 05:11 Levothyroxine Sodium 75 Mcg Tablet PO 75 mcg QDAC2 [facility] Administration Losartan Potassium 100 mg 02/27/24 09:00 02/28/24 08:32 Losartan Potassium 100 Mg Tablet PO 100 mg DAILY [facility] Administration Memantine 10 mg 02/26/24 21:00 02/28/24 08:31 Memantine Hcl 10 Mg Tablet PO 10 mg BID [facility] Administration Metoprolol Succinate 50 mg 02/27/24 09:00 02/28/24 08:30 Metoprolol Succinate 50 Mg Tab.Er.24h PO 50 mg DAILY [facility] Administration Ondansetron HCl 4 mg 02/26/24 16:39 Ondansetron Hcl/Pf 4 Mg/2 Ml Sdv IVP Q6H PRN Nausea / Vomiting Oxybutynin Chloride 5 mg 02/27/24 09:00 02/28/24 08:31 Oxybutynin Chloride 5 Mg Tab.Er.24 PO 5 mg DAILY [facility] Administration Rivaroxaban 15 mg 02/26/24 19:20 02/28/24 08:28 Rivaroxaban 10 Mg Tablet PO 15 mg DAILY [facility] Administration Sodium Chloride 1 syr 02/26/24 14:45 0.9% Sodium Chloride 10 Ml Disp.Syrin IVF PRN PRN To flush IV Plan Plan: 1. UTI with associated weakness due to e coli- Unsafe at home due to her weakness. Rocephin. PTOT consult. 2. Asthenia - PTOT 3. Hypertension - Cont home meds 4. Hypothyroidism- Cont home meds 5. Dementia - Cont home meds 6. Hyperlipidemia - Cont home meds 7. DMT2 - states he hasn't been giving her as much insulin due to her eating less. Accuchecks, sliding scale, diabetic diet. 8. A fib - Rate controlled, cont home meds DVT Prophylaxis: Madinareldacia Dispo: Discussed dc planning with today as patient is medically stable. She is however very weak. This has been progressively worsening for the past year per . He is very uncertain about taking her home, concern for safely transferring her at home by himself. She is a 2 assist here. We [facility]. He is reluctant but feels it may be his only choice, he is considering [facility]. He would like today to think it through. Discussed we will need to decide tomorrow morning. Discharge delayed at this time. Review Statement Review Statement: I have personally discussed and reviewed the patient's visit/currently labs/imaging/decision making with Dr. Abdullahi, my supervising attending. Greater that 50 minutes spent with patient, 50% of the time spent with this patient was devoted to counseling and coordination of care.
[2024-02-28] MEDS: HUMALOG (10 ML VIAL) SUBCUT PRN (12:07)
[2024-02-28 20:26] VITALS: PULSE 59
[2024-02-29 05:25] LABS: BASOPHILS % (AUTO) 0.3 % (0.0-3.0); EOSINOPHILS # (AUTO) 0.2 K/ul (0.0-0.7); EOSINOPHILS % (AUTO) 2.1 % (0.0-7.0); HEMATOCRIT 32.1 % (37.0-47.0); HEMOGLOBIN 9.3 g/dl (12.0-16.0); IMMATURE GRANULOCYTE % (AUTO) 0.2 % (0.0-5.0); LYMPHOCYTES # (AUTO) 1.2 K/uL (0.60-3.4); LYMPHOCYTES % (AUTO) 13.6 (10.0-50.0); MEAN CORPUSCULAR HEMOGLOBIN 24.9 pg (27.0-31.0); MEAN CORPUSCULAR VOLUME 85.8 fl (81.0-99.0); MONOCYTES # (AUTO) 0.6 K/uL (0.4-2.0); MONOCYTES % (AUTO) 7.4 (0-10); NEUTROPHILS # (AUTO) 6.6 K/ul (2.0-6.9); NEUTROPHILS % (AUTO) 76.4 % (42.2-75.2); PLATELET COUNT 220 10^3/uL (140-440); RDW COEFFICIENT OF VARIATION 17.4 % (11.6-14.8); RED BLOOD COUNT 3.74 10^6/ul (4.20-5.40)
[2024-02-29 05:26] VITALS: BP 160/53; RESP 15; TEMP 97.7
[2024-02-29 05:42] LABS: ALANINE AMINOTRANSFERASE 13.7 U/L (0-35); ALBUMIN 3.25 g/dL (3.5-5.0); ALKALINE PHOSPHATASE 60.3 U/L (53-141); ASPARTATE AMINO TRANSFERASE 20.8 U/L (14-36); BILIRUBIN,TOTAL 0.51 mg/dL (0.2-1.3); CALCIUM 9.15 mg/dL (8.4-10.2); CHLORIDE 108.9 mmol/L (98-107); CREATININE 1.92 mg/dL (0.60-1.30); GLUCOSE 156.6 mg/dL (74-106); POTASSIUM 4.01 mmol/L (3.5-5.1); SODIUM 139.3 mmol/L (134.5-145); TOTAL PROTEIN 6.2 g/dL (6.3-8.2)
[2024-02-29] MEDS: LASIX TAB PO SCH (09:12)
--- NOTE | 2024-02-29 10:30 | DCSUM ---
Admission Date Admission Date: 02/26/24 Discharge Date Discharge Date: 02/29/24 Admission Diagnosis Admission Diagnosis: 1. UTI with associated weakness due to e coli 2. Asthenia Discharge Diagnosis Discharge Diagnosis: 1. UTI with associated weakness due to e coli 2. Asthenia 3. Hypertension 4. Hypothyroidism 5. Dementia 6. Hyperlipidemia 7. DMT2 8. A fib Hospital Provider Hospital Provider: ALEX MENDOZA [facility]-C, [facility] Primary [facility] Physician Primary Care Physician: RAUL NEWTON MD Summary of History and Physical Summary of History and Physical: Patient is an 83 year old female from home with pmhx of hypertension, DMT2, a fib, hypothyroidism, CKD, and dementia who presented to the ER with weakness. Patient's provides the history due to patient's dementia. He states she was having difficulty getting out of her chair. Her gait was unsteady. She's also had decreased appetite. He was worried she could have a UTI as this is common for her. In the ER her labs were unremarkable except for mildly elevated wbc count, and UA showed suspect UTI. She was given rocephin. Admitted to med surg. Hospital Course Subjective: Patient UTI treated with rocephin. Urine culture grew e coli. ESBL negative. Patient has been medically stable. Discharge delayed on 02/27 as was unsure about taking her home. We discussed options including going to [facility] for rehab, which would be recommended given the amount of care she is requiring due to her dementia. He thought it over for 24 hours and decided to take her home. He feels he can safely care for her. We have ordered home health to continue therapy. Will continue cefpodoxime renally dosed for 3 more days starting 03/01. Patient's agrees to plan of care. High risk of failing at home. Appearance: Pleasant, No Apparent Distress and Alert HEENT: Supple CVS: No Murmur Abdomen: Soft, Non-Tender and No Distention Respiratory: No Accessory Muscle Use Extremities: No Edema Additional Findings: +PLEASANTLY CONFUSED AT BASELINE Vital Signs: Most Recent Vital Signs Temperature 97.7 F 02/29/24 05:19 Temperature Source Temporal Artery Scan 02/29/24 05:19 Temperature Source Infrared 02/26/24 14:07 Pulse Rate 59 L 02/29/24 05:19 Respiratory Rate 15 02/29/24 05:19 Blood Pressure 160/53 H 02/29/24 05:19 Blood Pressure Mean 88 02/29/24 05:19 Blood Pressure Left Arm 137/92 02/26/24 17:57 Blood Pressure Location Right Arm 02/29/24 05:19 Blood Pressure Position Supine 02/29/24 05:19 O2 Sat by Pulse Oximetry 97 02/29/24 05:19 Oxygen Delivery Method Room Air 02/29/24 08:00 Height 5 ft 5 in 02/26/24 17:57 Weight 92.2 kg 02/26/24 17:57 Telemetry Type Remote Telemetry 02/27/24 13:00 Telemetry Monitoring Continues 02/27/24 13:00 Telemetry Heart Rate 57 L 02/27/24 13:00 EKG QRS Interval 0.07 02/27/24 13:00 Telemetry Strip Reading Afib 02/27/24 13:00 Imaging: EXAM: CHEST RADIOGRAPH TECHNIQUE: Single frontal chest radiograph. HISTORY: Weakness. COMPARISON: 10/12/2023 FINDINGS: No pulmonary infiltrate is identified. No pleural effusion or pneumothorax is seen. Heart size is normal. No acute displaced rib fractures are identified. IMPRESSION: 1. No acute findings in the chest. EXAMINATION: HEAD CT WITHOUT CONTRAST HISTORY: Altered mental status. On xarelto. TECHNIQUE: Noncontrast CT of the brain was performed with images acquired from skull base to vertex. 2-D coronal and sagittal reformatted images were obtained from the axial source images. Contrast Dose: None. CT Dose Reduction Techniques Performed: Yes. COMPARISON: 12/17/2022 FINDINGS: No intracranial hemorrhage. No mass, mass effect or extra-axial fluid collection. There is age-related parenchymal volume loss with resultant prominence of the supratentorial CSF spaces. No hydrocephalous. The basal cisterns are patent. Patchy areas of white matter hypoattenuation are nonspecific but favored to represent sequelae of chronic small vessel ischemic disease. No acute territorial infarct. The paranasal sinuses and mastoid air cells are clear. No calvarial fracture or suspicious osseous lesion. IMPRESSION: 1. No acute intracranial process. 2. Stable parenchymal atrophy and chronic microvascular disease. Lab Results Last 24 Hours: 02/29/24 05:07 WBC 8.60 RBC 3.74 L Hgb 9.3 L Hct 32.1 L MCV 85.8 MCH 24.9 L MCHC 29.0 L RDW Coeff of Temo 17.4 H Plt Count 220 Immature Gran % (Auto) 0.2 Neut % (Auto) 76.4 H Lymph % (Auto) 13.6 [place] % (Auto) 7.4 Eos % (Auto) 2.1 Baso % (Auto) 0.3 Neut # (Auto) 6.6 Lymph # (Auto) 1.2 [place] # (Auto) 0.6 Eos # (Auto) 0.2 Baso # (Auto) 0.0 Immature Gran # (Auto) 0.0 Sodium 139.3 Potassium 4.01 Chloride 108.9 H Carbon Dioxide 22.0 Anion Gap 12.41 BUN 25.0 H Creatinine 1.92 H Estimated GFR (MDRD) 25.00 BUN/Creatinine Ratio 13.02 Glucose 156.6 H Calcium 9.15 Total Bilirubin 0.51 AST 20.8 ALT 13.7 Alkaline Phosphatase 60.3 Total Protein 6.20 L Albumin 3.25 L Globulin 2.95 Albumin/Globulin Ratio 1.10 Discharge Instructions Discharge Planning: Discharge Planning > [address] Shaila Newton. Discharge Medications: Medications at Discharge (Home Meds & RX) Discharge Plan Discharge Discharge Orders: Discharge Patient (ONCE); Ordered 02/29/24 Ordered By: ALEX MENDOZA Activity Restrictions/Additional Instructions: DISCHARGE TO HOME DX: UTI PHARMACY: [facility] ANTIBIOTIC PRESCRIBED, START TOMORROW F/U WITH PCP HOME HEALTH ORDERED You have been referred [facility] They will be in contact with you to initiate care. If you have any questions or need to speak with them, their contact number is [phone]. Instructions: Urinary Tract Infection in Older Adults (DC) Care Plan Goals: Problem: Infection Goal #1: No signs/symptoms of infection Instructions: Monitor for sign/symptoms of infection Monitor temperature Goal #2: White blood cell counts Within Normal Limits Instructions: Obtain labs per physician orders Patient Disposition: HOME WITH FAMILY CARE Prescriptions: New cefpodoxime 100 mg tablet 100 mg PO DAILY 3 Days Qty: 3 0RF Rx Instructions: must administer with a meal/food. START 03/01 Continued nystatin 100,000 unit/gram cream 1 applic topical BID Qty: 30 1RF insulin lispro [Humalog KwikPen Insulin] 100 unit/mL insulin pen 13 unit subcut ONCE Qty: 15 3RF Fiasp FlexTouch U-100 Insulin 100 unit/mL (3 mL) insulin pen 13 unit subcut QACLUNCH Qty: 15 2RF ferrous sulfate 325 mg (65 mg iron) tablet 325 mg PO QDAY Qty: 7 0RF insulin glargine [Basaglar KwikPen U-100 Insulin] 100 unit/mL (3 mL) insulin pen 40 unit subcut DAILY Qty: 15 4RF levothyroxine 75 mcg tablet 75 mcg PO DAILY Qty: 30 2RF oxybutynin chloride 5 mg tablet extended release 24hr 5 mg PO DAILY Qty: 90 1RF metoprolol succinate 50 mg tablet extended release 24 hr See Rx Instructions .ROUTE .COMPLEX Qty: 90 1RF Dose Instruction: TAKE ONE TABLET DAILY Rx Instructions: TAKE ONE TABLET DAILY cholecalciferol (vitamin D3) 1,250 mcg (50,000 unit) capsule See Rx Instructions .ROUTE .COMPLEX Qty: 12 0RF Dose Instruction: TAKE ONE CAPSULE ORALLY EVERY WEEK FOR 3 MONTHS Rx Instructions: TAKE ONE CAPSULE ORALLY EVERY WEEK FOR 3 MONTHS Namzaric 28-10 mg capsule,sprinkle,ER 24hr See Rx Instructions .ROUTE .COMPLEX Qty: 90 1RF Dose Instruction: TAKE ONE CAPSULE AT BEDTIME Rx Instructions: TAKE ONE CAPSULE AT BEDTIME furosemide 20 mg tablet 20 mg PO DAILY Qty: 30 2RF losartan 100 mg tablet 100 mg PO DAILY Qty: 90 1RF atorvastatin 20 mg tablet 20 mg PO DAILY Xarelto 15 mg tablet 15 mg PO DAILY No Action (DME) pen needle, diabetic [BD Ultra-Fine Mini Pen Needle] 31 gauge x 3/16" needle See Rx Instructions .ROUTE .COMPLEX Qty: 100 5RF Dose Instruction: USE DIRECTED TWICE DAILY Rx Instructions: USE DIRECTED TWICE DAILY (DME) blood-glucose meter Kit See Rx Instructions .ROUTE Qty: 1 0RF Rx Instructions: As directed DM2 E11.9 TEST TWO TIMES DAILY (DME) Pharmacist Choice Strip See Rx Instructions .ROUTE Qty: 100 4RF Rx Instructions: As directed DM2 E1.9 TEST TWO TIMES DAILY (DME) lancets [Color Lancets] 21 gauge misc See Rx Instructions .ROUTE Qty: 100 3RF Rx Instructions: As directed DM2 E11.9 TEST TWO TIMES DAILY Did you review [place] PLATE INSPECTOR for ALL controlled substances?: Not Applicable Discussed opioids are addictive and Narcan is available by prescription or from pharmacy.: No Condition: Stable Referrals: RAUL NEWTON MD [Primary Care Provider] - 03/05/24 9:00 am
[2024-02-29] MEDS: CEFPODOXIME PROXETIL PO ONE (11:15)
== END 2024-02-29 12:45 | disposition home or self-care (01) | DRG 690 ==
LOC: MEDSURG B 14:05 → ED 14:05 → OBSVTOIN 17:02 → MEDSURG B 17:41
PROVIDERS: ADMIT Hospitalist; ATTEND Physician Assistant

== ENCOUNTER 2024-04-10 15:37 | Inpatient (IN) ==
--- NOTE | 2024-04-10 16:12 | ED.PDOC ---
General ED Provider: Dr. AVA GROSSMAN MD Chief Complaint: Hypoglycemia Stated Complaint: 83-year-old female history of dementia ANO x 1-2 at baseline, on Xarelto, walks with a walker, UTIs, CKD, hypothyroidism, presenting to the emergency department with altered mental status. As per she went to see Dr. Newton today for routine checkup. They wanted to check a urinalysis. Around 2:00 today the states that she noticed to be less responsive and was not talking. She was seeming herself before that. Due to this he called EMS, she was found to have a blood glucose of 51 and was given an amp of dextrose. Her mental status has improved and she is currently at baseline as her . She has not had any medication changes since August 2023 and has been taking all of her medications as prescribed as per . She has not been sick recently, no nausea or vomiting. No diarrhea. She has chronically swollen legs that do not look significantly different. Patient is unable to provide much history but currently is denying headache, chest pain, abdominal pain or pain anywhere. Time Seen by Provider: 04/10/24 15:45 Information Source: EMT Primary Care Provider: RAUL NEWTON MD Nursing and Triage Documentation Reviewed and Agree: Yes What is Opioid Naive?: *Opioid Naive implies the patient is not already taking opioids or not chronically receiving opioids on a daily basis. *PRN dosing is not "usually" associated with tolerance. *Patients are at higher risk of over-sedation and aspiration. What is Opioid Tolerant?: *Opioid Tolerance implies less than the expected response to an opioid. *Acquired tolerance is defined by the patient taking 60mg of oral morphine daily (or equianalgesic dose of another opioid) for 1 week or more. *Often associated with chronic pain. *May take more than usual dose to achieve desired pain control. Review of Systems Review Of Systems Constitutional: Denies Fever Respiratory: Denies Shortness of Breath PFSH Family History FATHER Diabetes Mother CHF (congestive heart failure) SISTER COVID-19 vlad hauler COVID Cardiac abnormality Social History Smoking and tobacco status: Never smoker Alcohol intake: never Substance use type: does not use Special irma needs: No Agree to transfusion: Yes Adopted: No Caregiver/support person: No Foster care: No Household members: spouse Housing: apartment Marital status: M Lives independently: Yes Daycare: no daycare Number of children: 0 service: No FPC: No Current occupational status: retired History of recent travel: No Do you think of yourself as: straight/heterosexual Current gender identity: female Seatbelt use: sometimes Drives intoxicated or rides with intoxicated local truck driver: No Water heater temperature set < 120 degrees: Yes Working smoke detector in home: Yes Fire extinguisher in home: No Carbon monoxide detector in home: No Firearms in home: No Surgical History History of breast biopsy Z98.890 - Other specified postprocedural states (ICD-10) History of appendectomy Z90.49 - Acquired absence of other specified parts of digestive tract (ICD- 10) Physical Exam Physical Exam Appearance: Reports Well-appearing, No pain distress and Obese ENT: Reports Ears normal, Nose normal and Oropharynx normal Neck: Supple Respiratory: Reports Airway patent and Breath sounds clear; Denies Crackles, Rhonchi or Wheezes Cardiovascular: Reports RRR and Pulses normal GI/: Reports Soft and Nontender Musculoskeletal: Reports Normal strength Skin: Reports Warm and Dry Neurological: Reports Motor intact, Reflexes intact, Cranial nerves intact, Alert and Disoriented Psychiatric: Reports Affect appropriate Interpretation EKG Interpretation EKG Interpretation By: ED Physician Time of EKG #1: 16:20 Rate: Rubio Rhythm: Other Ectopy: None [place]: NL ST Segment: Normal Interpretation: PVCs with junctional rhythm Course Course 04/10/24 16:21 04/10/24 16:21 Orders, Labs, Meds: Lab Review 04/10/24 04/10/24 04/10/24 16:21 16:25 17:18 WBC 8.06 RBC 3.73 L Hgb 9.8 L Hct 31.7 L MCV 85.0 MCH 26.3 L MCHC 30.9 L RDW Coeff of Temo 16.7 H Plt Count 212 Immature Gran % (Auto) 0.4 Neut % (Auto) 81.5 H Lymph % (Auto) 11.3 [place] % (Auto) 5.6 Eos % (Auto) 0.7 Baso % (Auto) 0.5 Neut # (Auto) 6.6 Lymph # (Auto) 0.9 [place] # (Auto) 0.5 Eos # (Auto) 0.1 Baso # (Auto) 0.0 Immature Gran # (Auto) 0.0 Sodium 139.7 Potassium 3.16 L Chloride 104.5 Carbon Dioxide 26.2 Anion Gap 12.16 BUN 33.1 H Creatinine 2.61 H Estimated GFR (MDRD) 18.00 BUN/Creatinine Ratio 12.68 Glucose 86.2 Calcium 9.00 Magnesium 1.88 Total Bilirubin 0.32 AST 33.1 ALT 13.9 Alkaline Phosphatase 52.9 L Troponin I 0.019 NT-Pro-B Natriuret Pep 918 H Total Protein 6.33 Albumin 3.51 Globulin 2.82 Albumin/Globulin Ratio 1.24 TSH 7.170 H Free T4 1.42 Urine Color Yellow Urine Clarity Clear Urine pH 6.0 Ur Specific [place] 1.015 Urine Protein Negative Urine Glucose (UA) Negative Urine Ketones Negative Urine Blood Trace-intact H Urine Nitrite Negative Urine Bilirubin Negative Urine Urobilinogen 0.2 Ur Leukocyte Esterase 1+ H Urine Microscopic RBC 2-5 Urine Microscopic WBC 20-30 Ur Squamous Epith Cells Not Reportable Urine Bacteria 2+ Influ A Molecular Assay Negative by naat Influ B Molecular Assay Negative by naat RSV Antigen Negative by naat SARS CoV-2 RNA Rapid RUBY Negative 04/10/24 17:27 WBC RBC Hgb Hct MCV MCH MCHC RDW Coeff of Temo Plt Count Immature Gran % (Auto) Neut % (Auto) Lymph % (Auto) [place] % (Auto) Eos % (Auto) Baso % (Auto) Neut # (Auto) Lymph # (Auto) [place] # (Auto) Eos # (Auto) Baso # (Auto) Immature Gran # (Auto) Sodium Potassium Chloride Carbon Dioxide Anion Gap BUN Creatinine Estimated GFR (MDRD) BUN/Creatinine Ratio Glucose Calcium Magnesium Total Bilirubin AST ALT Alkaline Phosphatase Troponin I 0.021 NT-Pro-B Natriuret Pep Total Protein Albumin Globulin Albumin/Globulin Ratio TSH Free T4 Urine Color Urine Clarity Urine pH Ur Specific [place] Urine Protein Urine Glucose (UA) Urine Ketones Urine Blood Urine Nitrite Urine Bilirubin Urine Urobilinogen Ur Leukocyte Esterase Urine Microscopic RBC Urine Microscopic WBC Ur Squamous Epith Cells Urine Bacteria Influ A Molecular Assay Influ B Molecular Assay RSV Antigen SARS CoV-2 RNA Rapid RUBY Orders Category Date Time Status EKG-(ED ONLY) Stat CARDIO 04/10/24 16:08 Completed ED PEDAL ASSEMBLER APPLIED .ONCE EMERGENCY 04/10/24 16:08 Active Glucose [ED ACCUCHECK ASSESSMENT] .ONCE EMERGENCY 04/10/24 17:45 Active Straight [ED CATHETER INSERTION AND CARE] .ONCE EMERGENCY 04/10/24 16:09 Active CBC W/ AUTO DIFF Stat LAB 04/10/24 16:21 Completed CMP [COMPREHENSIVE METABOLIC PANEL] Stat LAB 04/10/24 16:21 Completed COVID [SARS COV-2 RNA RAPID RUBY] Stat LAB 04/10/24 16:25 Completed FLU A & B MOLECULAR [FLU A/B MOLECULAR] Stat LAB 04/10/24 16:25 Completed FREE T4 (FREE THYROXINE) Stat LAB 04/10/24 16:21 Completed MAGNESIUM Stat LAB 04/10/24 16:21 Completed NT-PROBNP(ED) Stat LAB 04/10/24 16:21 Completed RSV Stat LAB 04/10/24 16:25 Completed T3 LEVEL (FREE) [FREE TRIIODOTHYRONINE (T3)] Stat LAB 04/10/24 17:27 Received T4 (THYROXINE) Stat LAB 04/10/24 17:27 Received TROPONIN I Stat LAB 04/10/24 16:21 Completed TROPONIN I Stat LAB 04/10/24 17:27 Completed TSH [THYROID STIMULATING HORMONE] Stat LAB 04/10/24 16:21 Completed URINALYSIS C & S IF INDICATED Stat LAB 04/10/24 17:18 Completed URINE CULTURE Stat LAB 04/10/24 17:18 Received Dextrose 50 % in Water [Dextrose 50%-Water Abboject] Meds 04/10/24 17:08 Discontinued 50 ml IVP ONCE ONE Lidocaine HCl Jelly [Glydo] Meds 04/10/24 16:09 Discontinued 5 ml TRANSURETH ONCE ONE Potassium Chloride [Potassium Chloride 10 Meq/100 ml Meds 04/10/24 17:08 Discontinued Premix] 10 meq in [address] HEAD W/O CONTRAST Stat RADS 04/10/24 16:08 Completed CXR [CHEST, 1V AP ONLY] Stat RADS 04/10/24 16:12 Completed Medications Discontinued Medications Generic Name Dose Route Start Last Admin Trade Name Freq PRN Reason Stop Dose Admin Dextrose 50 ml 04/10/24 17:08 04/10/24 17:32 Dextrose 50 % In Water 50 Ml Disp.Syrin IVP 04/10/24 17:09 50 ml ONCE ONE Administration Potassium Chloride 10 meq in 100 mls @ 100 mls/hr 04/10/24 17:08 04/10/24 17:51 Potassium Chloride 10 Meq/100 Ml Premix IV 04/10/24 18:07 100 mls/hr ONCE ONE Administration Lidocaine HCl 5 ml 04/10/24 16:09 04/10/24 17:03 Lidocaine Jelly 11 Ml Jel.Pf.William (5ml Female/11ml Male) TRANSURETH 04/10/24 16:10 Not Given ONCE ONE Vital Signs: Temp Pulse Resp BP Pulse Ox 04/10/24 15:37 96.8 F L 49 L 12 106/41 L 99 Discharge Plan Discharge Patient Disposition: PLACED OBSERVATION Discharge Problem: Hypoglycemia, CKD (chronic kidney disease), stage IV Hypothyroidism Qualifiers: Hypothyroidism type: unspecified Qualified Code(s): E03.9 - Hypothyroidism, unspecified Dementia Qualifiers: Dementia type: unspecified type Dementia severity: unspecified severity D ementia behavioral or psychological symptom: unspecified whether behavioral, psychotic, or mood disturbance or anxiety Qualified Code(s): F03.90 - Unspecified dementia, unspecified severity, without behavioral disturbance, psychotic disturbance, mood disturbance, and anxiety DM type 2 (diabetes mellitus, type 2) Qualifiers: Diabetes mellitus [facility] insulin use: unspecified [facility] insulin use status Diabetes mellitus complication status: with other specified complication Qualified Code(s): E11.69 - Type 2 diabetes mellitus with other specified complication Prescriptions: No Action nystatin 100,000 unit/gram cream 1 applic topical BID Qty: 30 1RF insulin lispro [Humalog KwikPen Insulin] 100 unit/mL insulin pen 13 unit subcut ONCE Qty: 15 3RF Fiasp FlexTouch U-100 Insulin 100 unit/mL (3 mL) insulin pen 13 unit subcut QACLUNCH Qty: 15 2RF ferrous sulfate 325 mg (65 mg iron) tablet 325 mg PO QDAY Qty: 7 0RF oxybutynin chloride 5 mg tablet extended release 24hr 5 mg PO DAILY Qty: 90 1RF (DME) blood-glucose meter Kit See Rx Instructions .ROUTE Qty: 1 0RF Rx Instructions: As directed DM2 E11.9 TEST TWO TIMES DAILY (DME) Pharmacist Choice Strip See Rx Instructions .ROUTE Qty: 100 4RF Rx Instructions: As directed DM2 E1.9 TEST TWO TIMES DAILY (DME) lancets [Color Lancets] 21 gauge misc See Rx Instructions .ROUTE Qty: 100 3RF Rx Instructions: As directed DM2 E11.9 TEST TWO TIMES DAILY metoprolol succinate 50 mg tablet extended release 24 hr See Rx Instructions .ROUTE .COMPLEX Qty: 90 1RF Dose Instruction: TAKE ONE TABLET DAILY Rx Instructions: TAKE ONE TABLET DAILY cholecalciferol (vitamin D3) 1,250 mcg (50,000 unit) capsule See Rx Instructions .ROUTE .COMPLEX Qty: 12 0RF Dose Instruction: TAKE ONE CAPSULE ORALLY EVERY WEEK FOR 3 MONTHS Rx Instructions: TAKE ONE CAPSULE ORALLY EVERY WEEK FOR 3 MONTHS Namzaric 28-10 mg capsule,sprinkle,ER 24hr See Rx Instructions .ROUTE .COMPLEX Qty: 90 1RF Dose Instruction: TAKE ONE CAPSULE AT BEDTIME Rx Instructions: TAKE ONE CAPSULE AT BEDTIME furosemide 20 mg tablet 20 mg PO DAILY Qty: 30 2RF losartan 100 mg tablet 100 mg PO DAILY Qty: 90 1RF levothyroxine 75 mcg tablet 75 mcg PO DAILY Qty: 30 2RF (DME) pen needle, diabetic [BD Ultra-Fine Mini Pen Needle] 31 gauge x 3/16" needle See Rx Instructions .ROUTE .COMPLEX Qty: 100 5RF Dose Instruction: USE DIRECTED TWICE DAILY Rx Instructions: USE DIRECTED TWICE DAILY insulin glargine-yfgn 100 unit/mL (3 mL) insulin pen 40 unit subcut QDAY Qty: 15 3RF atorvastatin 20 mg tablet 20 mg PO DAILY Xarelto 15 mg tablet 15 mg PO DAILY Did you review [place] BUCKSHOT SWAGE OPERATOR for ALL controlled substances?: Not Applicable ED Provider: AVA GROSSMAN Condition: Stable Physician Progress Note: 83-year-old female history of A-fib on Xarelto, diabetes, not on any SGLT2 inhibitors that are noted, hypothyroidism, is brought into the emergency department altered mental status and found to be hypoglycemic. Improvement mental status after giving an amp. She is currently at her baseline and is currently alert and oriented x 2. She has not been sick recently. She has not any changes in medications so think this is likely likely a medication error. She is bradycardic however noted that she has been bradycardic on EKGs going as far back to 2020. Her blood pressure was 135/50. She is satting well on room air in no distress. Heart sounds are normal no murmurs rubs or gallops, lungs are clear to auscultation bilateral with no wheezing rales or rhonchi, abdomen is soft nontender she does have some swelling over lower extremities that appears chronic as per . Will give something to eat to ensure she does not drop her sugars again. Will get CBC screen for anemia or leukocytosis, CMP to look for electrolyte abnormalities magnesium, will get a Trope and a proBNP with the leg swelling as well as a chest x-ray does look for any signs of fluid overload or edema, screen for pneumonia, will get viral studies, will also send off TSH. I did request nurse reach out to Dr. Newton to see if he has any further insight. Will also get a CT of the head. There is no trauma to head reported fall however patient is on Xarelto Patient CT head was negative chest x-ray urinalysis negative. Does have baseline CKD 2 tropes with no significant changes. EKG in indeterminant range. No drop in blood pressure since has been here she has had a drop in her blood glucose was given another bolus she was also fed. I spoke with Dr. Newton who would like to be the patient admitted I discussed with hospitalist as well who agreed to place patient under observation status.
[2024-04-10 16:26] LABS: BASOPHILS % (AUTO) 0.5 % (0.0-3.0); EOSINOPHILS # (AUTO) 0.1 K/ul (0.0-0.7); EOSINOPHILS % (AUTO) 0.7 % (0.0-7.0); HEMATOCRIT 31.7 % (37.0-47.0); HEMOGLOBIN 9.8 g/dl (12.0-16.0); IMMATURE GRANULOCYTE % (AUTO) 0.4 % (0.0-5.0); LYMPHOCYTES # (AUTO) 0.9 K/uL (0.60-3.4); LYMPHOCYTES % (AUTO) 11.3 (10.0-50.0); MEAN CORPUSCULAR HEMOGLOBIN 26.3 pg (27.0-31.0); MEAN CORPUSCULAR HGB CONC 30.9 (31.8-35.4); MONOCYTES # (AUTO) 0.5 K/uL (0.4-2.0); MONOCYTES % (AUTO) 5.6 (0-10); NEUTROPHILS # (AUTO) 6.6 K/ul (2.0-6.9); NEUTROPHILS % (AUTO) 81.5 % (42.2-75.2); PLATELET COUNT 212 10^3/uL (140-440); RDW COEFFICIENT OF VARIATION 16.7 % (11.6-14.8); RED BLOOD COUNT 3.73 10^6/ul (4.20-5.40); WHITE BLOOD COUNT 8.06 K/ul (4.6-10.2)
[2024-04-10 16:38] LABS: ALANINE AMINOTRANSFERASE 13.9 U/L (0-35); ALBUMIN 3.51 g/dL (3.5-5.0); ALKALINE PHOSPHATASE 52.9 U/L (53-141); ASPARTATE AMINO TRANSFERASE 33.1 U/L (14-36); BILIRUBIN,TOTAL 0.32 mg/dL (0.2-1.3); BLOOD UREA NITROGEN 33.1 mg/dL (7-17); CARBON DIOXIDE 26.2 mmol/L (22-30.0); CHLORIDE 104.5 mmol/L (98-107); CREATININE 2.61 mg/dL (0.60-1.30); GLUCOSE 86.2 mg/dL (74-106); MAGNESIUM 1.88 mg/dL (1.6-2.3); POTASSIUM 3.16 mmol/L (3.5-5.1); SODIUM 139.7 mmol/L (134.5-145); TOTAL PROTEIN 6.33 g/dL (6.3-8.2)
[2024-04-10 16:50] LABS: TROPONIN I 0.019 ng/ml (0.0000-0.120)
[2024-04-10 16:54] LABS: MOLECULAR FLU A NEGATIVE BY NAAT (NEGATIVE); MOLECULAR FLU B NEGATIVE BY NAAT (NEGATIVE); RSV MOLECULAR NEGATIVE BY NAAT (NEGATIVE); SARS COV-2 RNA RAPID NAAT NEGATIVE (NEGATIVE)
--- NOTE | 2024-04-10 16:55 | CT ---
EXAM: CT SCAN OF THE HEAD WITHOUT CONTRAST HISTORY: altered mental status TECHNIQUE: Imaging of the head was performed without contrast. 5 mm thin axial images and coronal a nd sagittal images were obtained. Comparison to [id number]. FINDINGS: The lateral ventricles and cortical sulci are prominent from atrophy. No acute hemorrhage s are seen. There are no extraaxial collections. There is no mass effect. The basal cisterns are p atent. The paranasal sinuses and mastoid air cells are clear. IMPRESSION: No acute intracranial abnormalities are seen. Mild cerebral atrophy. All CT scans are performed using dose optimization techniques as appropriate to the performed exam an d include at least one of the following: Automated exposure control, adjustment of the mA and/or kV according t o size, and the use of iterative reconstruction technique.
--- NOTE | 2024-04-10 16:56 | DI ---
EXAM: FRONTAL CHEST RADIOGRAPH(S). 1 VIEW. History: Shortness of breath Comparison: 02/26/2024 Findings: Cardiomegaly. No pneumothorax or pleural effusion. No focal air space consolidation. Impression: Please see above.
[2024-04-10] MEDS: GLYDO TRANSURETH ONE (17:03)
[2024-04-10 17:08] LABS: THYROID STIMULATING HORMONE 7.17 uIU/L (0.465-4.68)
[2024-04-10] MEDS: DEXTROSE 50%-WATER ABBOJECT IVP ONE (17:32)
[2024-04-10 17:49] LABS: BILIRUBIN,URINE Negative (NEGATIVE); CLARITY,URINE Clear (CLEAR); COLOR,URINE Yellow (YELLOW); GLUCOSE, URINE (UA) Negative (NEGATIVE); KETONES,URINE Negative (NEGATIVE); LEUKOCYTE ESTERASE ,URINE 1+ (NEGATIVE); NITRITE,URINE Negative (NEGATIVE); PROTEIN,URINE Negative (NEGATIVE); URINE, BLOOD Trace-intact (NEGATIVE); UROBILINOGEN,URINE 0.2 (0.2)
[2024-04-10] MEDS: POTASSIUM CHLORIDE 10 MEQ/100 ML PREMIX 10 MEQ/100 ML BAG IV ONE (17:51)
[2024-04-10 17:53] LABS: URINE WBC, MICROSCOPIC 20-30 (0-2)
[2024-04-10 17:54] LABS: BACTERIA,URINE 2+ (NOT PRESENT)
[2024-04-10] MEDS ORDERED: ZOFRAN SDV IVP PRN (18:41)
[2024-04-10] MEDS ORDERED: TYLENOL PO PRN (18:41)
[2024-04-10] MEDS ORDERED: DEXTROSE 50%-WATER ABBOJECT IVP PRN (18:41)
[2024-04-10] MEDS: ROCEPHIN 1 GM/50 ML D5W 1 GM/50 ML BAG IV SCH (19:25)
[2024-04-10 20:14] VITALS: BMI 33.4
[2024-04-10] MEDS: DEXTROSE 5%-LR IV SOLUTION 1,000 ML IV SCH (21:29)
[2024-04-10] MEDS: NYSTATIN CREAM TP SCH (21:46)
[2024-04-11 05:33] LABS: BASOPHILS % (AUTO) 0.5 % (0.0-3.0); EOSINOPHILS # (AUTO) 0.1 K/ul (0.0-0.7); HEMOGLOBIN 8.9 g/dl (12.0-16.0); IMMATURE GRANULOCYTE % (AUTO) 0.3 % (0.0-5.0); LYMPHOCYTES # (AUTO) 1.3 K/uL (0.60-3.4); LYMPHOCYTES % (AUTO) 19.9 (10.0-50.0); MEAN CORPUSCULAR HEMOGLOBIN 25.7 pg (27.0-31.0); MEAN CORPUSCULAR HGB CONC 30.7 (31.8-35.4); MEAN CORPUSCULAR VOLUME 83.8 fl (81.0-99.0); MONOCYTES # (AUTO) 0.4 K/uL (0.4-2.0); MONOCYTES % (AUTO) 6.5 (0-10); NEUTROPHILS # (AUTO) 4.6 K/ul (2.0-6.9); NEUTROPHILS % (AUTO) 70.8 % (42.2-75.2); PLATELET COUNT 199 10^3/uL (140-440); RDW COEFFICIENT OF VARIATION 16.7 % (11.6-14.8); RED BLOOD COUNT 3.46 10^6/ul (4.20-5.40); WHITE BLOOD COUNT 6.43 K/ul (4.6-10.2)
[2024-04-11 05:46] LABS: ALBUMIN 2.84 g/dL (3.5-5.0); ALKALINE PHOSPHATASE 46.2 U/L (53-141); ASPARTATE AMINO TRANSFERASE 33.3 U/L (14-36); BLOOD UREA NITROGEN 28.8 mg/dL (7-17); CALCIUM 8.72 mg/dL (8.4-10.2); CHLORIDE 107.6 mmol/L (98-107); CREATININE 2.34 mg/dL (0.60-1.30); GLUCOSE 95.4 mg/dL (74-106); SODIUM 139.7 mmol/L (134.5-145); TOTAL PROTEIN 5.35 g/dL (6.3-8.2)
[2024-04-11 05:50] LABS: BILIRUBIN,TOTAL < 0.10 mg/dL (0.2-1.3)
[2024-04-11] MEDS: ARICEPT PO SCH (08:50)
[2024-04-11] MEDS: NAMENDA PO SCH (08:50)
[2024-04-11] MEDS: FERROUS SULFATE PO SCH (08:50)
[2024-04-11] MEDS: DITROPAN XL PO SCH (08:50)
[2024-04-11] MEDS: LIPITOR PO SCH (08:50)
[2024-04-11] MEDS: SYNTHROID PO SCH (08:59)
[2024-04-11] MEDS: NYSTATIN CREAM TP SCH (09:07)
[2024-04-11] MEDS ORDERED: DEXTROSE 5%-LR IV SOLUTION 1,000 ML IV SCH (10:29)
--- NOTE | 2024-04-11 13:33 | PCM ---
Date of Service Date Seen by Provider: 04/11/24 Time Seen by Provider: 09:10 Admit Day/Time Admission Date: 04/10/24 Admission Time: 18:26 Reason for Admission Chief Complaint: hypoglycemia Hospital Provider Hospital Provider: ALEX MENDOZA PA-C, [facility] Primary Care Physician Primary Care Physician: RAUL NEWTON MD History of Present Illness History of Present Illness: Patient is an 83 year old female from home with pmhx of hypertension, DMT2, a fib, hypothyroidism, CKD, and dementia who presented to the ER with worsened confusion and lethargy. Pt had seen her PCP in the morning and was fine per the . Once they got home he gave her her usual dose of 40 units of long acting insulin. Shortly after she was diaphoretic and lethargic. BG was 51. In the ED pt received an amp of d50, BG improved. However it continued to trend down. UA suspect for UTI. Otherwise work up negative. Pt has dementia at baseline. Pt admitted for hypoglycemia. Today patient is alert, mentation at her baseline. at bedside. He states she regularly gets the 40 units of insulin, but he usually doesn't give her mealtime insulin since she isn't eating much. Of note, her a1c is 5.69. Limited ROS due to patient's dementia. Case Discussed With Case Discussed With: lyn's case was discussed with the ER Physicians, Dr. Mo. [facility] Surgical History History of breast biopsy Z98.890 - Other specified postprocedural states (ICD-10) History of appendectomy Z90.49 - Acquired absence of other specified parts of digestive tract (ICD- 10) Family History FATHER Diabetes Mother CHF (congestive heart failure) SISTER COVID-19 long hauler COVID Cardiac abnormality Social History Smoking and tobacco status: Never smoker Alcohol intake: never Substance use type: does not use Special irma needs: No Agree to transfusion: Yes Adopted: No Caregiver/support person: No Foster care: No Household members: spouse Housing: apartment Marital status: M Lives independently: Yes Daycare: no daycare Number of children: 0 service: No custodial: No Current occupational status: retired History of recent travel: No Do you think of yourself as: straight/heterosexual Current gender identity: female Seatbelt use: sometimes Drives intoxicated or rides with intoxicated mobile lounge driver: No Water heater temperature set < 120 degrees: Yes Working smoke detector in home: Yes Fire extinguisher in home: No Carbon monoxide detector in home: No Firearms in home: No Allergies Allergies Allergy/AdvReac Type Severity Reaction Status Date / Time No Known Allergies Allergy Verified 04/10/24 15:59 Current Medications Home Medications Acetaminophen (Acetaminophen 325 Mg Tablet) 650 mg PO Q4H PRN PRN Reason: Mild Pain Atorvastatin Calcium (Atorvastatin Calcium 20 Mg Tablet) 20 mg PO DAILY [facility] Last Admin: 04/11/24 08:50 Dose: 20 mg Dextrose (Dextrose 50 % In Water 50 Ml Disp.Syrin) 50 ml IVP PRN PRN; Protocol PRN Reason: Unconscious Hypoglycemia Donepezil HCl (Donepezil Hcl 10 Mg Tablet) 10 mg PO DAILY [facility] Last Admin: 04/11/24 08:50 Dose: 10 mg Ferrous Sulfate (Ferrous Sulfate 324 Mg Tablet.Dr) 324 mg PO DAILY [facility] Last Admin: 04/11/24 08:50 Dose: 324 mg CEFTRIAXONE/D5W 1 GM PREMIX (Rocephin 1 Gm/50 Ml D5w) 1 gm in 50 mls @ 100 mls/hr IV DAILY [facility] Stop: 04/13/24 18:44 Last Admin: 04/11/24 08:46 Dose: 100 mls/hr Dextrose/Lactated Ringer's (Dextrose 5%-Lr Iv Solution) 1,000 mls @ 75 mls/hr IV .[id number] [facility] Levothyroxine Sodium (Levothyroxine Sodium 75 Mcg Tablet) 75 mcg PO QDAC2 [facility] Last Admin: 04/11/24 08:59 Dose: 75 mcg Memantine (Memantine Hcl 10 Mg Tablet) 10 mg PO BID [facility] Last Admin: 04/11/24 08:50 Dose: 10 mg Nystatin (Nystatin 15 Gm Cream) 1 applic TP BID [facility] Last Admin: 04/11/24 09:07 Dose: Not Given Ondansetron HCl (Ondansetron Hcl/Pf 4 Mg/2 Ml Sdv) 4 mg IVP Q6H PRN PRN Reason: Nausea / Vomiting Oxybutynin Chloride (Oxybutynin Chloride 5 Mg Tab.Er.24) 5 mg PO DAILY [facility] Last Admin: 04/11/24 08:50 Dose: 5 mg Rivaroxaban (Rivaroxaban 10 Mg Tablet) 15 mg PO QPM [facility] atorvastatin 20 mg tablet 20 mg PO DAILY 04/26/21 [History Confirmed 04/10/24] nystatin 100,000 unit/gram topical cream 1 applic topical BID #30 grams 06/29/23 [Rx Confirmed 04/10/24] insulin aspart (niacinamide)(U-100) 100 unit/mL(3 mL) subcutaneous pen (Fiasp FlexTouch U-100 Insulin) 13 unit subcut QACLUNCH #15 mL 07/10/23 [Rx Confirmed 04/10/24] insulin lispro 100 unit/mL subcutaneous pen (Humalog KwikPen (U-100) Insulin) 13 unit (0.13 mL) subcut ONCE #15 mL 07/10/23 [Rx Confirmed 04/10/24] rivaroxaban 15 mg tablet (Xarelto) 15 mg PO DAILY 08/24/23 [History Confirmed 04/10/24] ferrous sulfate 325 mg (65 mg iron) tablet 325 mg PO QDAY #7 tabs 12/19/23 [Rx Confirmed 04/10/24] oxybutynin chloride 5 mg tablet,extended release 24 hr 5 mg PO DAILY #90 tabs 01/25/24 [Rx Confirmed 04/10/24] blood sugar diagnostic (Pharmacist Choice Glucose Test Strips) #100 ea 02/05/24 [Rx Confirmed 04/10/24] blood-glucose meter #1 ea 02/05/24 [Rx Confirmed 04/10/24] lancets 21 gauge (Color Lancets) #100 ea 02/05/24 [Rx Confirmed 04/10/24] cholecalciferol (vitamin D3) 1,250 mcg (50,000 unit) capsule See Rx Instructions .Route .COMPLEX #12 caps 02/22/24 [Rx Confirmed 04/10/24] furosemide 20 mg tablet 20 mg PO DAILY #30 tabs 02/22/24 [Rx Confirmed 04/10/24] losartan 100 mg tablet 100 mg PO DAILY #90 tabs 02/22/24 [Rx Confirmed 04/10/24] memantine ER 28 mg-donepezil 10 mg capsule sprinkle,ext.release 24 hr (Namzaric) See Rx Instructions .Route .COMPLEX #90 caps 02/22/24 [Rx Confirmed 04/10/24] metoprolol succinate 50 mg tablet,extended release 24 hr See Rx Instructions .Route .COMPLEX #90 ea 02/22/24 [Rx Confirmed 04/10/24] levothyroxine 75 mcg tablet 75 mcg PO DAILY #30 tabs 03/21/24 [Rx Confirmed 04/10/24] pen needle, diabetic 31 gauge x 3/16" (BD Ultra-Fine Mini Pen Needle) #100 inserts 03/21/24 [Rx Confirmed 04/10/24] insulin glargine-yfgn 100 unit/mL (3 mL) subcutaneous pen 40 unit (0.4 mL) subcut QDAY #15 mL 04/04/24 [Rx Confirmed 04/10/24] Opioid Naive vs. Tolerant Does Patient Take Opioids?: No Is Patient Opioid Naive?: Yes What is Opioid Naive?: *Opioid Naive implies the patient is not already taking opioids or not chronically receiving opioids on a daily basis. *PRN dosing is not "usually" associated with tolerance. *Patients are at higher risk of over-sedation and aspiration. Is Patient Opioid Tolerant?: No What is Opioid Tolerant?: *Opioid Tolerance implies less than the expected response to an opioid. *Acquired tolerance is defined by the patient taking 60mg of oral morphine daily (or equianalgesic dose of another opioid) for 1 week or more. *Often associated with chronic pain. *May take more than usual dose to achieve desired pain control. Review of Systems Constitutional: Denies Fever or Fatigue Head: Reports Normocephalic and Atraumatic Cardiovascular: Denies Chest pain or Chest Pressure Respiratory: Denies Cough or Shortness of air Physical examination Most Recent Vital Signs: Most Recent Vital Signs Temperature 98.0 F 04/11/24 10:00 Temperature Source Temporal Artery Scan 04/11/24 10:00 Temperature Source Infrared 04/10/24 15:37 Pulse Rate 63 04/11/24 10:00 Respiratory Rate 14 04/11/24 10:00 Blood Pressure 144/63 H 04/11/24 10:00 Blood Pressure Mean 90 04/11/24 10:00 Blood Pressure Left Arm 148/94 04/10/24 20:07 Blood Pressure Location Left Arm 04/11/24 10:00 Blood Pressure Position Supine 04/11/24 05:18 O2 Sat by Pulse Oximetry 98 04/11/24 10:00 Oxygen Delivery Method Room Air 04/11/24 12:00 Height 5 ft 5 in 04/10/24 20:07 Weight 91.2 kg 04/10/24 20:07 Telemetry Type Remote Telemetry 04/11/24 07:00 Telemetry Monitoring Continues 04/11/24 07:00 Irregular Telemetry Rate (Approximate) 50-60 BPM 04/11/24 00:56 Telemetry Heart Rate 69 04/11/24 07:00 EKG OK Interval 0.23 H 04/11/24 07:00 EKG QRS Interval 0.09 04/11/24 07:00 Telemetry Strip Reading SR with 1s Degree AVB 04/11/24 07:00 Appearance: Positive No Apparent Distress and Other (+alert, sitting up in bed, pleasantly confused ) Skin: Positive [place], Warm, Good Turgor and Good Color; Negative Rashes HEENT: Positive Normocephalic and Atraumatic Neck: Positive Supple and Midline Trachea Chest/Lungs: Positive Clear to Auscultation Bilaterally; Negative Rales, Rhonci or Wheezes Heart: Positive RRR GI/: Positive Soft, Nontender, Bowel Sounds Normal and No Distention Neurological: Positive Cranial Nerves Intact, Alert and Disorinted Psychiatric: Positive Appropriate Mood and Appropriate Affect Labs This Visit Labs This Visit: Labs This Visit 04/10/24 04/10/24 04/10/24 16:21 16:25 17:18 WBC 8.06 RBC 3.73 L Hgb 9.8 L Hct 31.7 L MCV 85.0 MCH 26.3 L MCHC 30.9 L RDW Coeff of Temo 16.7 H Plt Count 212 Immature Gran % (Auto) 0.4 Neut % (Auto) 81.5 H Lymph % (Auto) 11.3 [place] % (Auto) 5.6 Eos % (Auto) 0.7 Baso % (Auto) 0.5 Neut # (Auto) 6.6 Lymph # (Auto) 0.9 [place] # (Auto) 0.5 Eos # (Auto) 0.1 Baso # (Auto) 0.0 Immature Gran # (Auto) 0.0 Sodium 139.7 Potassium 3.16 L Chloride 104.5 Carbon Dioxide 26.2 Anion Gap 12.16 BUN 33.1 H Creatinine 2.61 H Estimated GFR (MDRD) 18.00 BUN/Creatinine Ratio 12.68 Glucose 86.2 Hemoglobin A1c Calcium 9.00 Magnesium 1.88 Total Bilirubin 0.32 AST 33.1 ALT 13.9 Alkaline Phosphatase 52.9 L Troponin I 0.019 NT-Pro-B Natriuret Pep 918 H Total Protein 6.33 Albumin 3.51 Globulin 2.82 Albumin/Globulin Ratio 1.24 TSH 7.170 H Free T4 1.42 Urine Color Yellow Urine Clarity Clear Urine pH 6.0 Ur Specific [place] 1.015 Urine Protein Negative Urine Glucose (UA) Negative Urine Ketones Negative Urine Blood Trace-intact H Urine Nitrite Negative Urine Bilirubin Negative Urine Urobilinogen 0.2 Ur Leukocyte Esterase 1+ H Urine Microscopic RBC 2-5 Urine Microscopic WBC 20-30 Ur Squamous Epith Cells Not Reportable Urine Bacteria 2+ Influ A Molecular Assay Negative by naat Influ B Molecular Assay Negative by naat RSV Antigen Negative by naat SARS CoV-2 RNA Rapid RUBY Negative 04/10/24 04/11/24 17:27 05:24 WBC 6.43 RBC 3.46 L Hgb 8.9 L Hct 29.0 L MCV 83.8 MCH 25.7 L MCHC 30.7 L RDW Coeff of Temo 16.7 H Plt Count 199 Immature Gran % (Auto) 0.3 Neut % (Auto) 70.8 Lymph % (Auto) 19.9 [place] % (Auto) 6.5 Eos % (Auto) 2.0 Baso % (Auto) 0.5 Neut # (Auto) 4.6 Lymph # (Auto) 1.3 [place] # (Auto) 0.4 Eos # (Auto) 0.1 Baso # (Auto) 0.0 Immature Gran # (Auto) 0.0 Sodium 139.7 Potassium 3.70 Chloride 107.6 H Carbon Dioxide 24.0 Anion Gap 11.80 BUN 28.8 H Creatinine 2.34 H Estimated GFR (MDRD) 20.00 BUN/Creatinine Ratio 12.30 Glucose 95.4 Hemoglobin A1c 5.69 Calcium 8.72 Magnesium Total Bilirubin < 0.10 L AST 33.3 ALT 14.0 Alkaline Phosphatase 46.2 L Troponin I 0.021 NT-Pro-B Natriuret Pep Total Protein 5.35 L Albumin 2.84 L Globulin 2.51 Albumin/Globulin Ratio 1.13 TSH Free T4 Urine Color Urine Clarity Urine pH Ur Specific [place] Urine Protein Urine Glucose (UA) Urine Ketones Urine Blood Urine Nitrite Urine Bilirubin Urine Urobilinogen Ur Leukocyte Esterase Urine Microscopic RBC Urine Microscopic WBC Ur Squamous Epith Cells Urine Bacteria Influ A Molecular Assay Influ B Molecular Assay RSV Antigen SARS CoV-2 RNA Rapid RUYB Microbiology This Visit 04/10/24 17:18 Urine,Clean Catch Urine Culture - Preliminary Imaging Imaging: EXAM: FRONTAL CHEST RADIOGRAPH(S). 1 VIEW. History: Shortness of breath Comparison: 02/26/2024 Findings: Cardiomegaly. No pneumothorax or pleural effusion. No focal air space consolidation. Impression:Please see above. Review Statement Review Statement: I have independently reviewed and interpreted the labs/EKGs/imaging that were ordered by the ER provider. I have reviewed all outside records that are available currently in our EMR including imaging/notes/labs from previous visits. Plan Plan: 1. Hypoglycemic event with long acting insulin administration - A1c only 5.6. Hold insulin for now. D5LR at 125 ml/hr, start to wean down rate today and transition off of D5 fluids. Encourage eating. Will likely discontinue any mealtime insulin, and will cut back significantly on long acting insulin dose upon discharge, may even stop altogether. Risks outweigh benefits. 2. UTI - growing gram negative rods, continue rocephin 3. A fib - Cont home meds 4. Dementia, continue home meds 5. Hypertension - Cont home meds 6. Hyperlipidemia - Cont home meds DVT Prophylaxis: Xarelto Time Spent: Greater than 80 minutes spent with patient, 50% of the time spent with this patient was devoted to counseling and coordination of care. Advanced Care Plannin minutes spent discussing advance care planning. Admit to: Obs to inpt today Discussed Plan of Care with Dr. Shaila Newton. Medications Medication Orders: Medications Ordered Category Date Time Status Acetaminophen [Tylenol] Meds 04/10/24 18:41 Active 650 mg PO Q4H PRN Atorvastatin Calcium [Lipitor] Meds 04/11/24 09:00 Active 20 mg PO DAILY Ceftriaxone/D5w 1 gm Premix [Rocephin 1 gm/50 ml D5w] Meds 04/10/24 18:45 Active 1 gm in 50 ml IV DAILY Dextrose 5%-Lactated Ringers [Dextrose 5%-Lr IV Meds 04/11/24 10:29 Active Solution] 1,000 ml IV 75 mls/hr Dextrose 50 % in Water [Dextrose 50%-Water Abboject] Meds 04/10/24 18:41 Active 50 ml IVP PRN PRN Donepezil HCl [Aricept] Meds 04/11/24 09:00 Active 10 mg PO DAILY Ferrous Sulfate Meds 04/11/24 09:00 Active 324 mg PO DAILY Levothyroxine Sodium [Synthroid] Meds 04/11/24 09:00 Active 75 mcg PO QDAC2 Memantine HCl [Namenda] Meds 04/11/24 09:00 Active 10 mg PO BID Nystatin [Nystatin Cream] Meds 04/10/24 21:47 Active 1 applic TP BID Ondansetron HCl/Pf [Zofran Sdv] Meds 04/10/24 18:41 Active 4 mg IVP Q6H PRN Oxybutynin Chloride [Ditropan Xl] Meds 04/11/24 09:00 Active 5 mg PO DAILY Rivaroxaban [Xarelto] Meds 04/11/24 17:00 Active 15 mg PO QPM
[2024-04-11] MEDS: XARELTO PO SCH (17:30)
[2024-04-12 06:13] LABS: BASOPHILS % (AUTO) 0.6 % (0.0-3.0); EOSINOPHILS # (AUTO) 0.1 K/ul (0.0-0.7); EOSINOPHILS % (AUTO) 1.4 % (0.0-7.0); HEMATOCRIT 29.6 % (37.0-47.0); HEMOGLOBIN 8.8 g/dl (12.0-16.0); IMMATURE GRANULOCYTE % (AUTO) 0.4 % (0.0-5.0); LYMPHOCYTES # (AUTO) 1.3 K/uL (0.60-3.4); LYMPHOCYTES % (AUTO) 17.6 (10.0-50.0); MEAN CORPUSCULAR HEMOGLOBIN 25.7 pg (27.0-31.0); MEAN CORPUSCULAR HGB CONC 29.7 (31.8-35.4); MEAN CORPUSCULAR VOLUME 86.3 fl (81.0-99.0); MONOCYTES # (AUTO) 0.5 K/uL (0.4-2.0); MONOCYTES % (AUTO) 6.5 (0-10); NEUTROPHILS # (AUTO) 5.2 K/ul (2.0-6.9); NEUTROPHILS % (AUTO) 73.5 % (42.2-75.2); PLATELET COUNT 207 10^3/uL (140-440); RDW COEFFICIENT OF VARIATION 16.9 % (11.6-14.8); RED BLOOD COUNT 3.43 10^6/ul (4.20-5.40)
[2024-04-12 06:24] LABS: ALANINE AMINOTRANSFERASE 15.1 U/L (0-35); ALBUMIN 3.23 g/dL (3.5-5.0); ALKALINE PHOSPHATASE 50.9 U/L (53-141); ASPARTATE AMINO TRANSFERASE 28.6 U/L (14-36); BILIRUBIN,TOTAL 0.41 mg/dL (0.2-1.3); BLOOD UREA NITROGEN 23.8 mg/dL (7-17); CARBON DIOXIDE 25.3 mmol/L (22-30.0); CHLORIDE 107.9 mmol/L (98-107); CREATININE 2.22 mg/dL (0.60-1.30); GLUCOSE 195.6 mg/dL (74-106); POTASSIUM 3.96 mmol/L (3.5-5.1); SODIUM 138.6 mmol/L (134.5-145); TOTAL PROTEIN 5.78 g/dL (6.3-8.2)
[2024-04-12 07:16] LABS: T4 (THYROXINE) 8.8 ug/dL (4.5-12.0)
[2024-04-12] MEDS: TOPROL XL PO ONE (08:44)
[2024-04-12] MEDS ORDERED: NYSTATIN CREAM TP PRN (09:13)
[2024-04-12 09:42] VITALS: RESP 16
--- NOTE | 2024-04-12 11:01 | DCSUM ---
Admission Date Admission Date: 04/10/24 Discharge Date Discharge Date: 04/12/24 Admission Diagnosis Admission Diagnosis: 1. Hypoglycemic event with long acting insulin administration 2. UTI Discharge Diagnosis Discharge Diagnosis: 1. Hypoglycemic event with long acting insulin administration 2. UTI due to E coli 3. A fib - Cont home meds 4. Dementia, continue home meds 5. Hypertension - Cont home meds 6. Hyperlipidemia - Cont home meds Hospital Provider Hospital Provider: A[facility] MEND[facility]-C, [facility] Primary [facility] Physician Primary Care Physician: RAUL NEWTON MD Summary of History and Physical Summary of History and Physical: Patient is an 83 year old female from home with pmhx of hypertension, DMT2, a fib, hypothyroidism, CKD, and dementia who presented to the ER with worsened confusion and lethargy. Pt had seen her PCP in the morning and was fine per the . Once they got home he gave her her usual dose of 40 units of long acting insulin. Shortly after she was diaphoretic and lethargic. BG was 51. In the ED pt received an amp of d50, BG improved. However it continued to trend down. UA suspect for UTI. Otherwise work up negative. Pt has dementia at baseline. Pt admitted for hypoglycemia. Today patient is alert, mentation at her baseline. at bedside. He states she regularly gets the 40 units of insulin, but he usually doesn't give her mealtime insulin since she isn't eating much. Of note, her a1c is 5.69. Limited ROS due to patient's dementia. Hospital Course Subjective: Patient was weaned off of D5 fluids on 04/11. Her glucose has remained stable. Discussed with regarding discontinuing mealtime insulin since she's not eating well and we will cut her long acting insulin down to 10 units from 40 units. Her a1c is at 5.69, she is well below goal. Discussed risks of hypoglycemia. Encouraged to log sugars to take to pcp follow up for any further adjustments. Pt was noted to be bradycardic as well. Metoprolol dose cut in half to 25 mg daily. Urine grew e coli, will send in cefpodoxime for 5 days. Pt agrees to plan of care and has no other needs at this time. Appearance: Pleasant, No Apparent Distress and Alert HEENT: MMM CVS: Other (RRR) Abdomen: Soft, Non-Tender and No Distention Respiratory: No Accessory Muscle Use Extremities: No Edema Vital Signs: Most Recent Vital Signs Temperature 98.4 F 04/12/24 09:41 Temperature Source Temporal Artery Scan 04/12/24 09:41 Temperature Source Infrared 04/10/24 15:37 Pulse Rate 71 04/12/24 09:41 Respiratory Rate 16 04/12/24 09:41 Blood Pressure 140/55 L 04/12/24 09:41 Blood Pressure Mean 83 04/12/24 09:41 Blood Pressure Left Arm 148/94 04/10/24 20:07 Blood Pressure Location Right Arm 04/12/24 09:41 Blood Pressure Position Supine 04/12/24 09:41 O2 Sat by Pulse Oximetry 96 04/12/24 09:41 Oxygen Delivery Method Room Air 04/12/24 09:41 Height 5 ft 5 in 04/10/24 20:07 Weight 91.2 kg 04/10/24 20:07 Telemetry Type Remote Telemetry 04/12/24 07:00 Telemetry Monitoring Continues 04/12/24 07:00 Irregular Telemetry Rate (Approximate) 50-60 BPM 04/11/24 00:56 Telemetry Heart Rate 68 04/12/24 07:00 EKG [place] Interval 0.25 H 04/12/24 07:00 EKG QRS Interval 0.09 04/12/24 07:00 Telemetry Strip Reading SR with 1st Degree AVB and PVC's 04/12/24 07:00 Imaging: EXAM: FRONTAL CHEST RADIOGRAPH(S). 1 VIEW. History: Shortness of breath Comparison: 02/26/2024 Findings: Cardiomegaly. No pneumothorax or pleural effusion. No focal air space consolidation. Impression: Please see above. EXAM: CT SCAN OF THE HEAD WITHOUT CONTRAST HISTORY: altered mental status TECHNIQUE: Imaging of the head was performed without contrast. 5 mm thin axial images and coronal and sagittal images were obtained. Comparison to . FINDINGS: The lateral ventricles and cortical sulci are prominent from atrophy. No acute hemorrhages are seen. There are no extraaxial collections. There is no mass effect. The basal cisterns are patent. The paranasal sinuses and mastoid air cells are clear. IMPRESSION: No acute intracranial abnormalities are seen. Mild cerebral atrophy. Lab Results Last 24 Hours: 04/12/24 04/10/24 06:05 17:27 WBC 7.10 RBC 3.43 L Hgb 8.8 L Hct 29.6 L MCV 86.3 MCH 25.7 L MCHC 29.7 L RDW Coeff of Temo 16.9 H Plt Count 207 Immature Gran % (Auto) 0.4 Neut % (Auto) 73.5 Lymph % (Auto) 17.6 [place] % (Auto) 6.5 Eos % (Auto) 1.4 Baso % (Auto) 0.6 Neut # (Auto) 5.2 Lymph # (Auto) 1.3 [place] # (Auto) 0.5 Eos # (Auto) 0.1 Baso # (Auto) 0.0 Immature Gran # (Auto) 0.0 Sodium 138.6 Potassium 3.96 Chloride 107.9 H Carbon Dioxide 25.3 Anion Gap 9.36 BUN 23.8 H Creatinine 2.22 H Estimated GFR (MDRD) 21.00 BUN/Creatinine Ratio 10.72 Glucose 195.6 H Calcium 9.00 Total Bilirubin 0.41 AST 28.6 ALT 15.1 Alkaline Phosphatase 50.9 L Total Protein 5.78 L Albumin 3.23 L Globulin 2.55 Albumin/Globulin Ratio 1.26 Thyroxine (T4) 8.8 Free T3 pg/mL 2.0 Discharge Instructions Discharge Planning: Discharge Planning > [address] Shaila Newton. Discharge Medications: Medications at Discharge (Home Meds & RX) atorvastatin 20 mg tablet 20 mg PO DAILY 04/26/21 nystatin 100,000 unit/gram topical cream 1 applic topical BID #30 grams 06/29/23 rivaroxaban 15 mg tablet (Xarelto) 15 mg PO DAILY 08/24/23 ferrous sulfate 325 mg (65 mg iron) tablet 325 mg PO QDAY #7 tabs 12/19/23 oxybutynin chloride 5 mg tablet,extended release 24 hr 5 mg PO DAILY #90 tabs 01/25/24 blood sugar diagnostic (Pharmacist Choice Glucose Test Strips) #100 ea 02/05/24 blood-glucose meter #1 ea 02/05/24 lancets 21 gauge (Color Lancets) #100 ea 02/05/24 cholecalciferol (vitamin D3) 1,250 mcg (50,000 unit) capsule See Rx Instructions .Route .COMPLEX #12 caps 02/22/24 furosemide 20 mg tablet 20 mg PO DAILY #30 tabs 02/22/24 losartan 100 mg tablet 100 mg PO DAILY #90 tabs 02/22/24 memantine ER 28 mg-donepezil 10 mg capsule sprinkle,ext.release 24 hr (Namzaric) See Rx Instructions .Route .COMPLEX #90 caps 02/22/24 levothyroxine 75 mcg tablet 75 mcg PO DAILY #30 tabs 03/21/24 pen needle, diabetic 31 gauge x 3/16" (BD Ultra-Fine Mini Pen Needle) #100 inserts 03/21/24 cefpodoxime 100 mg tablet 100 mg PO DAILY 5 days #5 tabs 04/12/24 insulin glargine-yfgn 100 unit/mL (3 mL) subcutaneous pen 10 unit (0.1 mL) subcut QDAY #15 mL 04/12/24 metoprolol succinate 25 mg tablet,extended release 24 hr 25 mg PO DAILY #30 tabs 04/12/24 Discharge Plan Discharge Discharge Orders: Discharge Patient (ONCE); Ordered 04/12/24 Ordered By: ALEX MENDOZA Activity Restrictions/Additional Instructions: DISCHARGE TO HOME DX: HYPOGLYCEMIA, UTI STOP ANY MEALTIME INSULIN DECREASE LONG ACTING (LANTUS) INSULIN TO 10 UNITS ONLY INSTEAD OF 40 UNITS RETURN WITH WORSENING SYMPTOMS WRITE SUGARS DOWN AND TAKE TO PCP FOLLOW UP FOR FURTHER ADJUMENT OF DOSE IF NEEDED METOPROLOL DOSE CUT IN HALF DUE TO LOW HEART RATE Care Plan Goals: Problem: Altered Blood Glucose Level Goal: Maintain blood glucose level Within Normal Limits Instructions: Diet as ordered Diet consult if indicated Monitor accucheck levels Monitor signs/symptoms of altered glucose Problem: Infection Goal #1: No signs/symptoms of infection Instructions: Monitor for sign/symptoms of infection Monitor temperature Goal #2: White blood cell counts Within Normal Limits Instructions: Obtain labs per physician orders Patient Disposition: HOME WITH FAMILY CARE Prescriptions: New metoprolol succinate 25 mg tablet extended release 24 hr 25 mg PO DAILY Qty: 30 0RF cefpodoxime 100 mg tablet 100 mg PO DAILY 5 Days Qty: 5 0RF Rx Instructions: must administer with a meal/food Continued nystatin 100,000 unit/gram cream 1 applic topical BID Qty: 30 1RF ferrous sulfate 325 mg (65 mg iron) tablet 325 mg PO QDAY Qty: 7 0RF oxybutynin chloride 5 mg tablet extended release 24hr 5 mg PO DAILY Qty: 90 1RF cholecalciferol (vitamin D3) 1,250 mcg (50,000 unit) capsule See Rx Instructions .ROUTE .COMPLEX Qty: 12 0RF Dose Instruction: TAKE ONE CAPSULE ORALLY EVERY WEEK FOR 3 MONTHS Rx Instructions: TAKE ONE CAPSULE ORALLY EVERY WEEK FOR 3 MONTHS Namzaric 28-10 mg capsule,sprinkle,ER 24hr See Rx Instructions .ROUTE .COMPLEX Qty: 90 1RF Dose Instruction: TAKE ONE CAPSULE AT BEDTIME Rx Instructions: TAKE ONE CAPSULE AT BEDTIME furosemide 20 mg tablet 20 mg PO DAILY Qty: 30 2RF losartan 100 mg tablet 100 mg PO DAILY Qty: 90 1RF levothyroxine 75 mcg tablet 75 mcg PO DAILY Qty: 30 2RF atorvastatin 20 mg tablet 20 mg PO DAILY Xarelto 15 mg tablet 15 mg PO DAILY Changed insulin glargine-yfgn 100 unit/mL (3 mL) insulin pen 10 unit subcut QDAY Qty: 15 3RF Discontinued insulin lispro [Humalog KwikPen Insulin] 100 unit/mL insulin pen 13 unit subcut ONCE Qty: 15 3RF Fiasp FlexTouch U-100 Insulin 100 unit/mL (3 mL) insulin pen 13 unit subcut QACLUNCH Qty: 15 2RF metoprolol succinate 50 mg tablet extended release 24 hr See Rx Instructions .ROUTE .COMPLEX Qty: 90 1RF Dose Instruction: TAKE ONE TABLET DAILY Rx Instructions: TAKE ONE TABLET DAILY No Action (DME) blood-glucose meter Kit See Rx Instructions .ROUTE Qty: 1 0RF Rx Instructions: As directed DM2 E11.9 TEST TWO TIMES DAILY (DME) Pharmacist Choice Strip See Rx Instructions .ROUTE Qty: 100 4RF Rx Instructions: As directed DM2 E1.9 TEST TWO TIMES DAILY (DME) lancets [Color Lancets] 21 gauge misc See Rx Instructions .ROUTE Qty: 100 3RF Rx Instructions: As directed DM2 E11.9 TEST TWO TIMES DAILY (DME) pen needle, diabetic [BD Ultra-Fine Mini Pen Needle] 31 gauge x 3/16" needle See Rx Instructions .ROUTE .COMPLEX Qty: 100 5RF Dose Instruction: USE DIRECTED TWICE DAILY Rx Instructions: USE DIRECTED TWICE DAILY Did you review [place] [employer] for ALL controlled substances?: Not Applicable Discussed opioids are addictive and Narcan is available by prescription or from pharmacy.: No Condition: Stable Referrals: RAUL NEWTON MD [Primary Care Provider] - 04/18/24 1:20 pm
[2024-04-12 13:52] VITALS: BP 144/117; PULSE 68; TEMP 98
== END 2024-04-12 15:00 | disposition home or self-care (01) | DRG 638 ==
LOC: ED 15:37 → MEDSURG B 15:37
PROVIDERS: ADMIT Hospitalist; ATTEND Physician Assistant

== ENCOUNTER 2024-04-13 10:07 | Inpatient (IN) ==
--- NOTE | 2024-04-13 10:23 | ED.PDOC ---
General ED Provider: Dr. CAROLYN BELLA MD Chief Complaint: Extremity Swelling/Pain Stated Complaint: 83 years old female with history of type 2 diabetes insulin- dependent, hypothyroidism, anemia, dyslipidemia, hypertension, CHF comes emergency room for swelling of the lower extremities. Patient was recently discharged from here on after she was admitted for hypoglycemia and UTI she discharged home with antibiotics has been taking them but family found her sitting on her chair soaked in urine lower extremities are swollen so they wanted her to be evaluated. Patient has caregivers at home but apparently she is not getting proper care. Otherwise no chest pain or shortness of breath no nausea or vomiting no changes in bowel or urine. Time Seen by Provider: 04/13/24 10:19 Information Source: Patient and EMT Primary Care Provider: RAUL NEWTON MD Nursing and Triage Documentation Reviewed and Agree: Yes What is Opioid Naive?: *Opioid Naive implies the patient is not already taking opioids or not chronically receiving opioids on a daily basis. *PRN dosing is not "usually" associated with tolerance. *Patients are at higher risk of over-sedation and aspiration. What is Opioid Tolerant?: *Opioid Tolerance implies less than the expected response to an opioid. *Acquired tolerance is defined by the patient taking 60mg of oral morphine daily (or equianalgesic dose of another opioid) for 1 week or more. *Often associated with chronic pain. *May take more than usual dose to achieve desired pain control. Review of Systems Review Of Systems Constitutional: Reports No symptoms PFSH Family History FATHER Diabetes Mother CHF (congestive heart failure) SISTER COVID-19 vlad hauler COVID Cardiac abnormality Social History Smoking and tobacco status: Never smoker Alcohol intake: never Substance use type: does not use Special irma needs: No Agree to transfusion: Yes Adopted: No Caregiver/support person: No Foster care: No Household members: spouse Housing: apartment Marital status: M Lives independently: Yes Daycare: no daycare Number of children: 0 service: No long-term: No Current occupational status: retired History of recent travel: No Do you think of yourself as: straight/heterosexual Current gender identity: female Seatbelt use: sometimes Drives intoxicated or rides with intoxicated auto crane driver: No Water heater temperature set < 120 degrees: Yes Working smoke detector in home: Yes Fire extinguisher in home: No Carbon monoxide detector in home: No Firearms in home: No Surgical History History of breast biopsy Z98.890 - Other specified postprocedural states (ICD-10) History of appendectomy Z90.49 - Acquired absence of other specified parts of digestive tract (ICD- 10) Physical Exam Physical Exam Appearance: Reports No pain distress and Obese Respiratory: Reports Airway patent and Breath sounds diminished Cardiovascular: Reports RRR, Pulses normal, No rub and No murmur Musculoskeletal: Reports Normal strength, ROM intact and Edema (2+ edema BLE) Course Course 04/13/24 11:08 04/13/24 11:08 Orders, Labs, Meds: Lab Review 04/13/24 04/13/24 10:25 11:08 WBC 10.58 H RBC 3.74 L Hgb 9.8 L Hct 32.1 L MCV 85.8 MCH 26.2 L MCHC 30.5 L RDW Coeff of Temo 16.8 H Plt Count 220 Immature Gran % (Auto) 0.4 Neut % (Auto) 83.4 H Lymph % (Auto) 8.0 L [place] % (Auto) 7.3 Eos % (Auto) 0.6 Baso % (Auto) 0.3 Neut # (Auto) 8.8 H Lymph # (Auto) 0.9 [place] # (Auto) 0.8 Eos # (Auto) 0.1 Baso # (Auto) 0.0 Immature Gran # (Auto) 0.0 Sodium 140.6 Potassium 4.78 Chloride 107.9 H Carbon Dioxide 26.7 Anion Gap 10.78 BUN 28.1 H Creatinine 2.06 H Estimated GFR (MDRD) 23.00 BUN/Creatinine Ratio 13.64 Glucose 176.9 H Calcium 9.41 Total Bilirubin 1.21 AST 48.9 H ALT 18.4 Alkaline Phosphatase 43.2 L Troponin I 0.034 NT-Pro-B Natriuret Pep 2000 H Total Protein 6.79 Albumin 3.74 Globulin 3.05 Albumin/Globulin Ratio 1.22 SARS CoV-2 RNA Rapid RUBY Negative Orders Category Date Time Status ADMIT PATIENT INPATIENT .TO MEDSURG (MONITORED BED) ADMISSION 04/13/24 12:34 Active ECHOCARDIOGRAM 2D-M MODE Routine CARDIO 04/15/24 08:00 Ordered BLOOD GLUCOSE MONITORING (MED/SURG) 0630,1100,1700,2100 CARE 04/13/24 12:35 Active CATHETER INSERTION AND CARE Q8HR CARE 04/13/24 12:34 Active GIVE HS SNACK 2100 CARE 04/13/24 12:35 Active INTAKE & OUTPUT Q8HR CARE 04/13/24 12:34 Active REMINDER: Ask MD to d/c gray DAILY CARE 04/13/24 12:35 Active TELEMETRY MONITORING TELE CARE 04/13/24 12:34 Active VITAL SIGNS Q4HR CARE 04/13/24 12:34 Active ADA 1800 ANJANA. DIET DIETARY 04/13/24 Lunch Ordered HS SNACK DIETARY 04/13/24 Dinner Ordered Insert Gray [ED CATHETER INSERTION AND CARE] .ONCE EMERGENCY 04/13/24 10:49 Active CBC W/ AUTO DIFF DAILY@0600 LAB 04/14/24 06:00 Ordered CBC W/ AUTO DIFF DAILY@0600 LAB 04/15/24 06:00 Ordered CBC W/ AUTO DIFF Stat LAB 04/13/24 11:08 Completed CMP [COMPREHENSIVE METABOLIC PANEL] Stat LAB 04/13/24 11:08 Completed COMPREHENSIVE METABOLIC PANEL DAILY@0600 LAB 04/14/24 06:00 Ordered COMPREHENSIVE METABOLIC PANEL DAILY@0600 LAB 04/15/24 06:00 Ordered COVID [SARS COV-2 RNA RAPID RUBY] Stat LAB 04/13/24 10:25 Completed PROBNP ED [NT-PROBNP(ED)] Stat LAB 04/13/24 11:08 Completed TROPONIN I Stat LAB 04/13/24 11:08 Completed Acetaminophen [Tylenol] Meds 04/13/24 12:34 Active 650 mg PO Q4H PRN Dextrose 50 % in Water [Dextrose 50%-Water Abboject] Meds 04/13/24 12:34 Active 50 ml IVP ONCE PRN Furosemide [Lasix] Meds 04/13/24 10:49 Discontinued 20 mg IVP ONCE STA Furosemide [Lasix] Meds 04/13/24 21:00 Active 20 mg IVP Q8HR Ondansetron HCl/Pf [Zofran Sdv] Meds 04/13/24 12:34 Active 4 mg IVP Q6H PRN CXR [CHEST, 1V AP ONLY] Stat RADS 04/13/24 10:46 Taken Medications Generic Name Dose Route Start Last Admin Trade Name Freq PRN Reason Stop Dose Admin Acetaminophen 650 mg 04/13/24 12:34 Acetaminophen 325 Mg Tablet PO Q4H PRN Mild Pain Dextrose 50 ml 04/13/24 12:34 Dextrose 50 % In Water 50 Ml Disp.Syrin IVP ONCE PRN Unconscious Hypoglycemia Protocol Furosemide 20 mg 04/13/24 21:00 Furosemide Inj 20 Mg/2 Ml Vial IVP Q8HR ROCKY Ondansetron HCl 4 mg 04/13/24 12:34 Ondansetron Hcl/Pf 4 Mg/2 Ml Sdv IVP Q6H PRN Nausea / Vomiting Discontinued Medications Generic Name Dose Route Start Last Admin Trade Name Freq PRN Reason Stop Dose Admin Furosemide 20 mg 04/13/24 10:49 04/13/24 11:15 Furosemide Inj 20 Mg/2 Ml Vial IVP 04/13/24 10:50 20 mg ONCE STA Administration Vital Signs: Temp Pulse Resp BP Pulse Ox 04/13/24 10:09 97.4 F L 79 18 152/66 H 100 Patient with bilateral lower extremity edema possibly secondary to CHF exacerbation patient is on Lasix at home proBNP 1999 but could be elevated due to chronic kidney disease. Gray catheter was inserted patient received Lasix 20 mg IV she will need to be admitted for further diuresis and echocardiogram discussed with the goals of care reported that he is not able to take care of the patient at home he is interested in alf placement the case was discussed with the hospitalist on-call Alex and she accepted the patient to be admitted for CHF exacerbation and possible placement. Discharge Plan Discharge Patient Disposition: ADMITTED INPATIENT Discharge Problem: CHF exacerbation Prescriptions: No Action nystatin 100,000 unit/gram cream 1 applic topical BID Qty: 30 1RF ferrous sulfate 325 mg (65 mg iron) tablet 325 mg PO QDAY Qty: 7 0RF oxybutynin chloride 5 mg tablet extended release 24hr 5 mg PO DAILY Qty: 90 1RF (DME) blood-glucose meter Kit See Rx Instructions .ROUTE Qty: 1 0RF Rx Instructions: As directed DM2 E11.9 TEST TWO TIMES DAILY (DME) Pharmacist Choice Strip See Rx Instructions .ROUTE Qty: 100 4RF Rx Instructions: As directed DM2 E1.9 TEST TWO TIMES DAILY (DME) lancets [Color Lancets] 21 gauge misc See Rx Instructions .ROUTE Qty: 100 3RF Rx Instructions: As directed DM2 E11.9 TEST TWO TIMES DAILY cholecalciferol (vitamin D3) 1,250 mcg (50,000 unit) capsule See Rx Instructions .ROUTE .COMPLEX Qty: 12 0RF Dose Instruction: TAKE ONE CAPSULE ORALLY EVERY WEEK FOR 3 MONTHS Rx Instructions: TAKE ONE CAPSULE ORALLY EVERY WEEK FOR 3 MONTHS Namzaric 28-10 mg capsule,sprinkle,ER 24hr See Rx Instructions .ROUTE .COMPLEX Qty: 90 1RF Dose Instruction: TAKE ONE CAPSULE AT BEDTIME Rx Instructions: TAKE ONE CAPSULE AT BEDTIME furosemide 20 mg tablet 20 mg PO DAILY Qty: 30 2RF losartan 100 mg tablet 100 mg PO DAILY Qty: 90 1RF levothyroxine 75 mcg tablet 75 mcg PO DAILY Qty: 30 2RF (DME) pen needle, diabetic [BD Ultra-Fine Mini Pen Needle] 31 gauge x 3/16" needle See Rx Instructions .ROUTE .COMPLEX Qty: 100 5RF Dose Instruction: USE DIRECTED TWICE DAILY Rx Instructions: USE DIRECTED TWICE DAILY insulin glargine-yfgn 100 unit/mL (3 mL) insulin pen 10 unit subcut QAM atorvastatin 20 mg tablet 20 mg PO DAILY Xarelto 15 mg tablet 15 mg PO DAILY metoprolol succinate 25 mg tablet extended release 24 hr 25 mg PO DAILY Qty: 30 0RF cefpodoxime 100 mg tablet 100 mg PO DAILY 5 Days Qty: 5 0RF Rx Instructions: must administer with a meal/food Did you review [place] CLIENT SERVICES ASSISTANT for ALL controlled substances?: Not Applicable ED Provider: CAROLYN BELLA Condition: Stable
[2024-04-13 11:09] LABS: SARS COV-2 RNA RAPID NAAT NEGATIVE (NEGATIVE)
[2024-04-13 11:11] LABS: BASOPHILS % (AUTO) 0.3 % (0.0-3.0); EOSINOPHILS # (AUTO) 0.1 K/ul (0.0-0.7); EOSINOPHILS % (AUTO) 0.6 % (0.0-7.0); HEMATOCRIT 32.1 % (37.0-47.0); HEMOGLOBIN 9.8 g/dl (12.0-16.0); IMMATURE GRANULOCYTE % (AUTO) 0.4 % (0.0-5.0); LYMPHOCYTES # (AUTO) 0.9 K/uL (0.60-3.4); MEAN CORPUSCULAR HEMOGLOBIN 26.2 pg (27.0-31.0); MEAN CORPUSCULAR HGB CONC 30.5 (31.8-35.4); MEAN CORPUSCULAR VOLUME 85.8 fl (81.0-99.0); MONOCYTES # (AUTO) 0.8 K/uL (0.4-2.0); MONOCYTES % (AUTO) 7.3 (0-10); NEUTROPHILS # (AUTO) 8.8 K/ul (2.0-6.9); NEUTROPHILS % (AUTO) 83.4 % (42.2-75.2); PLATELET COUNT 220 10^3/uL (140-440); RDW COEFFICIENT OF VARIATION 16.8 % (11.6-14.8); RED BLOOD COUNT 3.74 10^6/ul (4.20-5.40); WHITE BLOOD COUNT 10.58 K/ul (4.6-10.2)
[2024-04-13] MEDS: LASIX IVP STA (11:15)
[2024-04-13 11:36] LABS: ALANINE AMINOTRANSFERASE 18.4 U/L (0-35); ALBUMIN 3.74 g/dL (3.5-5.0); ALKALINE PHOSPHATASE 43.2 U/L (53-141); ASPARTATE AMINO TRANSFERASE 48.9 U/L (14-36); BILIRUBIN,TOTAL 1.21 mg/dL (0.2-1.3); BLOOD UREA NITROGEN 28.1 mg/dL (7-17); CALCIUM 9.41 mg/dL (8.4-10.2); CARBON DIOXIDE 26.7 mmol/L (22-30.0); CHLORIDE 107.9 mmol/L (98-107); CREATININE 2.06 mg/dL (0.60-1.30); GLUCOSE 176.9 mg/dL (74-106); POTASSIUM 4.78 mmol/L (3.5-5.1); SODIUM 140.6 mmol/L (134.5-145); TOTAL PROTEIN 6.79 g/dL (6.3-8.2)
[2024-04-13 11:48] LABS: TROPONIN I 0.034 ng/ml (0.0000-0.120)
[2024-04-13] MEDS ORDERED: TYLENOL PO PRN (12:34)
[2024-04-13] MEDS ORDERED: ZOFRAN SDV IVP PRN (12:34)
[2024-04-13] MEDS ORDERED: DEXTROSE 50%-WATER ABBOJECT IVP PRN (12:34)
--- NOTE | 2024-04-13 12:39 | PCM ---
Date of Service Date Seen by Provider: 04/13/24 Time Seen by Provider: 12:00 Admit Day/Time Admission Date: 04/13/24 Admission Time: 12:34 Reason for Admission Chief Complaint: ACUTE CHF [facility] Hospital Provider Hospital Provider[facility] Primary Care Physician: RAUL ABDULLAHI MD History of Present Illness History of Present Illness: Patient is an 83 year old female from home with pmhx of hypertension, DMT2, a fib, hypothyroidism, CKD, and dementia who presents for unable to stand out of her chair and worsened lower ext edema/pain. Patient was admitted from 04/10-04/12 for hypoglycemia. Walked 100 ft with therapy during that stay. Had received D5LR for just under 24 hours. Today her lower ext are found to be more edematous causing her to be unable to ambulate. She denies sob, however she is an unreliable historian. at bedside provides the history. They have been failing at home for a while now. He is agreeable to seeking rehab placement. Pt BNP elevated at 2000, which is above her baseline. She was given 20 of lasix IV. states she's had her morning meds already. Admitted to med surg. Case Discussed With Case Discussed With: Patient's case was discussed with the ER Physicians, Dr. Borden [facility] Surgical History History of breast biopsy Z98.890 - Other specified postprocedural states (ICD-10) History of appendectomy Z90.49 - Acquired absence of other specified parts of digestive tract (ICD- 10) Family History FATHER Diabetes Mother CHF (congestive heart failure) SISTER COVID-19 long hauler COVID Cardiac abnormality Social History Smoking and tobacco status: Never smoker Alcohol intake: never Substance use type: does not use Special irma needs: No Agree to transfusion: Yes Adopted: No Caregiver/support person: No Foster care: No Household members: spouse Housing: apartment Marital status: M Lives independently: Yes Daycare: no daycare Number of children: 0 service: No half-way: No Current occupational status: retired History of recent travel: No Do you think of yourself as: straight/heterosexual Current gender identity: female Seatbelt use: sometimes Drives intoxicated or rides with intoxicated guard driver: No Water heater temperature set < 120 degrees: Yes Working smoke detector in home: Yes Fire extinguisher in home: No Carbon monoxide detector in home: No Firearms in home: No Allergies Allergies Allergy/AdvReac Type Severity Reaction Status Date / Time No Known Allergies Allergy Verified 04/13/24 10:20 Current Medications Home Medications Acetaminophen (Acetaminophen 325 Mg Tablet) 650 mg PO Q4H PRN PRN Reason: Mild Pain Dextrose (Dextrose 50 % In Water 50 Ml Disp.Syrin) 50 ml IVP ONCE PRN; Protocol PRN Reason: Unconscious Hypoglycemia Furosemide (Furosemide Inj 20 Mg/2 Ml Vial) 20 mg IVP Q8HR ROCKY Ondansetron HCl (Ondansetron Hcl/Pf 4 Mg/2 Ml Sdv) 4 mg IVP Q6H PRN PRN Reason: Nausea / Vomiting atorvastatin 20 mg tablet 20 mg PO DAILY 04/26/21 [History Confirmed 04/13/24] nystatin 100,000 unit/gram topical cream 1 applic topical BID #30 grams 06/29/23 [Rx Confirmed 04/13/24] rivaroxaban 15 mg tablet (Xarelto) 15 mg PO DAILY 08/24/23 [History Confirmed 04/13/24] ferrous sulfate 325 mg (65 mg iron) tablet 325 mg PO QDAY #7 tabs 12/19/23 [Rx Confirmed 04/13/24] oxybutynin chloride 5 mg tablet,extended release 24 hr 5 mg PO DAILY #90 tabs 01/25/24 [Rx Confirmed 04/13/24] blood sugar diagnostic (Pharmacist Choice Glucose Test Strips) #100 ea 02/05/24 [Rx Confirmed 04/13/24] blood-glucose meter #1 ea 02/05/24 [Rx Confirmed 04/13/24] lancets 21 gauge (Color Lancets) #100 ea 02/05/24 [Rx Confirmed 04/13/24] cholecalciferol (vitamin D3) 1,250 mcg (50,000 unit) capsule See Rx Instructions .Route .COMPLEX #12 caps 02/22/24 [Rx Confirmed 04/13/24] furosemide 20 mg tablet 20 mg PO DAILY #30 tabs 02/22/24 [Rx Confirmed 04/13/24] losartan 100 mg tablet 100 mg PO DAILY #90 tabs 02/22/24 [Rx Confirmed 04/13/24] memantine ER 28 mg-donepezil 10 mg capsule sprinkle,ext.release 24 hr (Namzaric) See Rx Instructions .Route .COMPLEX #90 caps 02/22/24 [Rx Confirmed 04/13/24] levothyroxine 75 mcg tablet 75 mcg PO DAILY #30 tabs 03/21/24 [Rx Confirmed 04/13/24] pen needle, diabetic 31 gauge x 3/16" (BD Ultra-Fine Mini Pen Needle) #100 inserts 03/21/24 [Rx Confirmed 04/13/24] cefpodoxime 100 mg tablet 100 mg PO DAILY 5 days #5 tabs 04/12/24 [Rx Confirmed 04/13/24] metoprolol succinate 25 mg tablet,extended release 24 hr 25 mg PO DAILY #30 tabs 04/12/24 [Rx Confirmed 04/13/24] insulin glargine-yfgn 100 unit/mL (3 mL) subcutaneous pen 10 unit subcut QAM 04/13/24 [History Confirmed 04/13/24] Opioid Naive vs. Tolerant Does Patient Take Opioids?: No Is Patient Opioid Naive?: Yes What is Opioid Naive?: *Opioid Naive implies the patient is not already taking opioids or not chronically receiving opioids on a daily basis. *PRN dosing is not "usually" associated with tolerance. *Patients are at higher risk of over-sedation and aspiration. Is Patient Opioid Tolerant?: No What is Opioid Tolerant?: *Opioid Tolerance implies less than the expected response to an opioid. *Acquired tolerance is defined by the patient taking 60mg of oral morphine daily (or equianalgesic dose of another opioid) for 1 week or more. *Often associated with chronic pain. *May take more than usual dose to achieve desired pain control. Review of Systems Constitutional: Reports Fatigue and Weakness; Denies Fever Head: Reports Normocephalic and Atraumatic Neurological: Reports Weakness and Problems with walking Physical examination Most Recent Vital Signs: Most Recent Vital Signs Temperature 97.4 F L 04/13/24 10:09 Temperature Source Infrared 04/13/24 10:09 Pulse Rate 79 04/13/24 10:09 Respiratory Rate 18 04/13/24 10:09 Blood Pressure 152/66 H 04/13/24 10:09 O2 Sat by Pulse Oximetry 100 04/13/24 10:09 Height 5 ft 5 in 04/13/24 10:09 Weight 95.2 kg 04/13/24 10:09 Telemetry Heart Rate 72 04/12/24 13:00 Appearance: Positive No Apparent Distress and Other (+Alert, oriented to self only ) Skin: Positive [employer], Warm and Good Turgor; Negative Rashes HEENT: Positive Normocephalic and Atraumatic Neck: Positive Supple and Midline Trachea Chest/Lungs: Positive Clear to Auscultation Bilaterally; Negative Rales, Rhonci or Wheezes Heart: Positive RRR GI/: Positive Soft, Nontender, Bowel Sounds Normal and No Distention Neurological: Positive Cranial Nerves Intact, Alert, Disorinted and Other (+generalized weakness ) Psychiatric: Positive Appropriate Mood and Appropriate Affect; Negative Intact Memory, Good Short-Term Recall, Good Long-Term Recall, Normal Judgement or Normal Insight Additional Findings: She does have krystal 1-2+ pitting edema of lower ext, worse in her forefoot area. Pulses and sensation intact. Painful with palpation bilaterally. Labs This Visit Labs This Visit: Labs This Visit 04/13/24 04/13/24 10:25 11:08 WBC 10.58 H RBC 3.74 L Hgb 9.8 L Hct 32.1 L MCV 85.8 MCH 26.2 L MCHC 30.5 L RDW Coeff of Temo 16.8 H Plt Count 220 Immature Gran % (Auto) 0.4 Neut % (Auto) 83.4 H Lymph % (Auto) 8.0 L [place] % (Auto) 7.3 Eos % (Auto) 0.6 Baso % (Auto) 0.3 Neut # (Auto) 8.8 H Lymph # (Auto) 0.9 [place] # (Auto) 0.8 Eos # (Auto) 0.1 Baso # (Auto) 0.0 Immature Gran # (Auto) 0.0 Sodium 140.6 Potassium 4.78 Chloride 107.9 H Carbon Dioxide 26.7 Anion Gap 10.78 BUN 28.1 H Creatinine 2.06 H Estimated GFR (MDRD) 23.00 BUN/Creatinine Ratio 13.64 Glucose 176.9 H Calcium 9.41 Total Bilirubin 1.21 AST 48.9 H ALT 18.4 Alkaline Phosphatase 43.2 L Troponin I 0.034 NT-Pro-B Natriuret Pep 2000 H Total Protein 6.79 Albumin 3.74 Globulin 3.05 Albumin/Globulin Ratio 1.22 SARS CoV-2 RNA Rapid RUBY Negative Review Statement Review Statement: I have independently reviewed and interpreted the labs/EKGs/imaging that were ordered by the ER provider. I have reviewed all outside records that are available currently in our EMR including imaging/notes/labs from previous visits. Plan Plan: 1. Acute HF exacerbation - Will order echo for Monday. Lasix 20 mg iv q8hrs, will diurese gently due to her renal disease. I&O, diabetic diet. 2. Recent UTI due to E coli - Will continue cefpodoxime 3. DMT2 - insulin dependent. Recent changes in insulin therapy. Will continue with lantus 10 units and see how her sugars do. 4. A fib - Cont home meds 5. Hypertension - Cont home meds, metoprolol dose recently decreased due to bradycardia 6. Hypothyroidism - Cont home meds DVT Prophylaxis: Xarelto Time Spent: Greater than 80 minutes spent with patient, 50% of the time spent with this patient was devoted to counseling and coordination of care. [facility]annin minutes spent discussing advance care planning. Admit to: Inpatient Disposition: Expecting to need rehab placement. Poor social circumstances. High readmission risk. Discussed Plan of Care with Dr. Shaila Abdullahi. Medications Medication Orders: Medications Ordered Category Date Time Status Acetaminophen [Tylenol] Meds 04/13/24 12:34 Ordered 650 mg PO Q4H PRN Dextrose 50 % in Water [Dextrose 50%-Water Abboject] Meds 04/13/24 12:34 Ordered 50 ml IVP ONCE PRN Furosemide [Lasix] Meds 04/13/24 21:00 Ordered 20 mg IVP Q8HR Ondansetron HCl/Pf [Zofran Sdv] Meds 04/13/24 12:34 Ordered 4 mg IVP Q6H PRN
--- NOTE | 2024-04-13 13:03 | DI ---
EXAM: FRONTAL CHEST RADIOGRAPH(S). 1 VIEW. History: Shortness of breath Comparison: 04/10/2024 Findings: Heart size normal. No pneumothorax or pleural effusion. No focal air space consolidation. Impression: Please see above.
[2024-04-13 14:07] VITALS: BMI 34.1
[2024-04-13] MEDS: LASIX IVP SCH (20:58)
[2024-04-13] MEDS: NYSTATIN CREAM TP SCH (21:04)
[2024-04-14] MEDS: SYNTHROID PO SCH (05:35)
[2024-04-14 05:39] LABS: BASOPHILS % (AUTO) 0.3 % (0.0-3.0); EOSINOPHILS % (AUTO) 0.2 % (0.0-7.0); HEMATOCRIT 29.7 % (37.0-47.0); HEMOGLOBIN 9.1 g/dl (12.0-16.0); IMMATURE GRANULOCYTE % (AUTO) 0.3 % (0.0-5.0); LYMPHOCYTES # (AUTO) 0.8 K/uL (0.60-3.4); LYMPHOCYTES % (AUTO) 6.5 (10.0-50.0); MEAN CORPUSCULAR HEMOGLOBIN 26.3 pg (27.0-31.0); MEAN CORPUSCULAR HGB CONC 30.6 (31.8-35.4); MEAN CORPUSCULAR VOLUME 85.8 fl (81.0-99.0); MONOCYTES # (AUTO) 0.9 K/uL (0.4-2.0); MONOCYTES % (AUTO) 7.9 (0-10); NEUTROPHILS # (AUTO) 9.9 K/ul (2.0-6.9); NEUTROPHILS % (AUTO) 84.8 % (42.2-75.2); PLATELET COUNT 198 10^3/uL (140-440); RDW COEFFICIENT OF VARIATION 16.8 % (11.6-14.8); RED BLOOD COUNT 3.46 10^6/ul (4.20-5.40); WHITE BLOOD COUNT 11.65 K/ul (4.6-10.2)
[2024-04-14 05:51] LABS: ALANINE AMINOTRANSFERASE 17.5 U/L (0-35); ALBUMIN 3.33 g/dL (3.5-5.0); ALKALINE PHOSPHATASE 56.5 U/L (53-141); ASPARTATE AMINO TRANSFERASE 30.8 U/L (14-36); BILIRUBIN,TOTAL 0.93 mg/dL (0.2-1.3); BLOOD UREA NITROGEN 28.1 mg/dL (7-17); CARBON DIOXIDE 27.9 mmol/L (22-30.0); CHLORIDE 104.7 mmol/L (98-107); CREATININE 2.32 mg/dL (0.60-1.30); GLUCOSE 197.1 mg/dL (74-106); POTASSIUM 3.79 mmol/L (3.5-5.1); SODIUM 140.6 mmol/L (134.5-145); TOTAL PROTEIN 6.17 g/dL (6.3-8.2)
[2024-04-14] MEDS: COZAAR PO SCH (09:45)
[2024-04-14] MEDS: LIPITOR PO SCH (09:45)
[2024-04-14] MEDS: XARELTO PO SCH (09:46)
[2024-04-14] MEDS: DITROPAN XL PO SCH (09:46)
[2024-04-14] MEDS: ARICEPT PO SCH (09:46)
[2024-04-14] MEDS: FERROUS SULFATE PO SCH (09:47)
[2024-04-14] MEDS: TOPROL XL PO SCH (09:47)
[2024-04-14] MEDS: LANTUS SUBCUT SCH (09:54)
[2024-04-14] MEDS: CEFPODOXIME 100 MG PO SCH (09:58)
--- NOTE | 2024-04-14 10:38 | PCM.PROG ---
Date/Time Seen Date Seen by Provider: 04/14/24 Time Seen by Provider: 09:00 Provider Provider: A[facility]END[facility]C, [facility] Chief Complaint Chief Complaint: ACUTE CHF EXACEIBATION Subjective Subjective: at bedside. Pt has no complaints. Swelling is improved today. Objective Appearance: Positive No Apparent Distress and Other (disoriented at baseline ) Chest/Lungs: Positive Clear to Auscultation Bilaterally; Negative Rales, Rhonci or Wheezes Heart: Positive RRR GI/: Positive Soft, Nontender, Bowel Sounds Normal and No Distention Neurological: Positive Cranial Nerves Intact, Alert, Disorinted and Other (+generalized weakness ) Additional Findings: 1+ pitting edema krystal, much improved especially in her feet. Vital Signs Vital Signs: Vital Signs: Last 24 Hours 04/13/24 13:50 04/13/24 13:58 04/13/24 13:58 Temperature 97.8 F Temperature Source Temporal Artery Scan Pulse Rate 72 Respiratory Rate 17 17 Blood Pressure Blood Pressure Mean Blood Pressure Left Arm 155/72 Blood Pressure Location Blood Pressure Position Supine O2 Sat by Pulse Oximetry 100 Oxygen Delivery Method Room Air Room Air Height 5 ft 5 in Weight 93 kg Telemetry Type Remote Telemetry Telemetry Monitoring Started Irregular Telemetry Rate (Approximate) Telemetry Heart Rate 73 EKG QRS Interval 0.10 Telemetry Strip Reading AFIB 04/13/24 14:00 04/13/24 19:00 04/13/24 20:00 Temperature 97.8 F Temperature Source Temporal Artery Scan Pulse Rate 72 Respiratory Rate Blood Pressure 155/72 H Blood Pressure Mean 99 Blood Pressure Left Arm Blood Pressure Location Left Arm Blood Pressure Position Supine O2 Sat by Pulse Oximetry 100 Oxygen Delivery Method Room Air Room Air Height Weight Telemetry Type Remote Telemetry Telemetry Monitoring Continues Irregular Telemetry Rate (Approximate) 70-80 BPM Telemetry Heart Rate EKG QRS Interval 0.06 Telemetry Strip Reading AFIB 04/13/24 21:18 04/14/24 00:49 04/14/24 05:38 Temperature 98.0 F 98 F Temperature Source Temporal Artery Scan Temporal Artery Scan Pulse Rate 87 89 Respiratory Rate 17 16 Blood Pressure 139/59 L 110/89 Blood Pressure Mean 85 96 Blood Pressure Left Arm Blood Pressure Location Right Arm Right Arm Blood Pressure Position Supine Supine O2 Sat by Pulse Oximetry 98 94 L Oxygen Delivery Method Room Air Room Air Height Weight Telemetry Type Remote Telemetry Telemetry Monitoring Continues Irregular Telemetry Rate (Approximate) 90-100 BPM Telemetry Heart Rate EKG QRS Interval 0.04 L Telemetry Strip Reading ATRIAL FIB 04/14/24 07:00 Temperature Temperature Source Pulse Rate Respiratory Rate Blood Pressure Blood Pressure Mean Blood Pressure Left Arm Blood Pressure Location Blood Pressure Position O2 Sat by Pulse Oximetry Oxygen Delivery Method Height Weight Telemetry Type Remote Telemetry Telemetry Monitoring Continues Irregular Telemetry Rate (Approximate) 70-80 BPM Telemetry Heart Rate EKG QRS Interval 0.08 Telemetry Strip Reading AFIB Lab Results Lab Results: Lab Results: Last 24 Hours 04/14/24 04/13/24 04/13/24 05:30 11:08 10:25 WBC 11.65 H 10.58 H RBC 3.46 L 3.74 L Hgb 9.1 L 9.8 L Hct 29.7 L 32.1 L MCV 85.8 85.8 MCH 26.3 L 26.2 L MCHC 30.6 L 30.5 L RDW Coeff of Temo 16.8 H 16.8 H Plt Count 198 220 Immature Gran % (Auto) 0.3 0.4 Neut % (Auto) 84.8 H 83.4 H Lymph % (Auto) 6.5 L 8.0 L [place] % (Auto) 7.9 7.3 Eos % (Auto) 0.2 0.6 Baso % (Auto) 0.3 0.3 Neut # (Auto) 9.9 H 8.8 H Lymph # (Auto) 0.8 0.9 [place] # (Auto) 0.9 0.8 Eos # (Auto) 0.0 0.1 Baso # (Auto) 0.0 0.0 Immature Gran # (Auto) 0.0 0.0 Sodium 140.6 140.6 Potassium 3.79 4.78 Chloride 104.7 107.9 H Carbon Dioxide 27.9 26.7 Anion Gap 11.79 10.78 BUN 28.1 H 28.1 H Creatinine 2.32 H 2.06 H Estimated GFR (MDRD) 20.00 23.00 BUN/Creatinine Ratio 12.11 13.64 Glucose 197.1 H 176.9 H Calcium 9.00 9.41 Total Bilirubin 0.93 1.21 AST 30.8 48.9 H ALT 17.5 18.4 Alkaline Phosphatase 56.5 43.2 L Troponin I 0.034 NT-Pro-B Natriuret Pep 2000 H Total Protein 6.17 L 6.79 Albumin 3.33 L 3.74 Globulin 2.84 3.05 Albumin/Globulin Ratio 1.17 1.22 SARS CoV-2 RNA Rapid RUBY Negative Additional Comments Additional Comments: I have independently reviewed and interpreted the labs/EKGs/imaging ordered during this hospital stay. I have reviewed outside records that are available in our EMR that pertain to medical stay including imaging/notes/labs from previous visits. Active Medications Active Medications: Medications Generic Name Dose Route Start Last Admin Trade Name Freq PRN Reason Stop Dose Admin Acetaminophen 650 mg 04/13/24 12:34 Acetaminophen 325 Mg Tablet PO Q4H PRN Mild Pain Atorvastatin Calcium 20 mg 04/14/24 09:00 04/14/24 09:45 Atorvastatin Calcium 20 Mg Tablet PO 20 mg DAILY ROCKY Administration Dextrose 50 ml 04/13/24 12:34 Dextrose 50 % In Water 50 Ml Disp.Syrin IVP ONCE PRN Unconscious Hypoglycemia Protocol Donepezil HCl 10 mg 04/14/24 09:00 04/14/24 09:46 Donepezil Hcl 10 Mg Tablet PO 10 mg DAILY ROCKY Administration Ferrous Sulfate 324 mg 04/14/24 09:00 04/14/24 09:47 Ferrous Sulfate 324 Mg Tablet. PO 324 mg DAILY ROCKY Administration Furosemide 20 mg 04/13/24 21:00 04/14/24 04:59 Furosemide Inj 20 Mg/2 Ml Vial IVP 20 mg Q8HR ROCKY Administration Insulin Glargine 10 unit 04/14/24 09:00 04/14/24 09:54 Insulin Glargine,Hum.Rec.Anlog 100 Units/Ml SUBCUT 10 unit QAM ROCKY Administration Levothyroxine Sodium 75 mcg 04/14/24 06:00 04/14/24 05:35 Levothyroxine Sodium 75 Mcg Tablet PO 75 mcg QDAC2 ROCKY Administration Losartan Potassium 100 mg 04/14/24 09:00 04/14/24 09:45 Losartan Potassium 100 Mg Tablet PO 100 mg DAILY ROCKY Administration Memantine 10 mg 04/14/24 21:30 Memantine Hcl 10 Mg Tablet PO BID ROCKY Metoprolol Succinate 25 mg 04/14/24 09:00 04/14/24 09:47 Metoprolol Succinate 25 Mg Tab.Er.24h PO 25 mg DAILY ROCKY Administration Non-Formulary Medication 100 mg 04/14/24 09:00 04/14/24 09:58 Cefpodoxime PO Not Given DAILY ROCKY Nystatin 1 applic 04/13/24 21:00 04/14/24 09:49 Nystatin 15 Gm Cream TP 1 applic BID ROCKY Administration Ondansetron HCl 4 mg 04/13/24 12:34 Ondansetron Hcl/Pf 4 Mg/2 Ml Sdv IVP Q6H PRN Nausea / Vomiting Oxybutynin Chloride 5 mg 04/14/24 09:00 04/14/24 09:46 Oxybutynin Chloride 5 Mg Tab.Er.24 PO 5 mg DAILY ROCKY Administration Rivaroxaban 15 mg 04/14/24 09:00 04/14/24 09:46 Rivaroxaban 10 Mg Tablet PO 15 mg DAILY ROCKY Administration Sodium Chloride 1 syr 04/13/24 21:00 04/14/24 04:59 0.9% Sodium Chloride 10 Ml Disp.Syrin IVF 1 syr Q8HR ROCKY Administration Plan Plan: 1. Acute HF exacerbation - Will order echo for Monday. Decrease Lasix 20 mg iv q12hrs, will diurese gently due to her renal disease. I&O, diabetic diet. 2. Recent UTI due to E coli - Will continue cefpodoxime 3. DMT2 - insulin dependent. Recent changes in insulin therapy. Will continue with lantus 10 units only and see how her sugars do. 4. A fib - Cont home meds 5. Hypertension - Cont home meds, metoprolol dose recently decreased due to bradycardia 6. Hypothyroidism - Cont home meds DVT Prophylaxis: Sarkis Review Statement Review Statement: I have personally discussed and reviewed the patient's visit/currently labs/imaging/decision making with Dr. Abdullahi, my supervising attending. Greater that 50 minutes spent with patient, 50% of the time spent with this patient was devoted to counseling and coordination of care.
[2024-04-14] MEDS: LASIX IVP SCH (21:04)
[2024-04-14] MEDS: NAMENDA PO SCH (21:12)
[2024-04-15 05:36] LABS: BASOPHILS % (AUTO) 0.3 % (0.0-3.0); EOSINOPHILS # (AUTO) 0.2 K/ul (0.0-0.7); EOSINOPHILS % (AUTO) 2.3 % (0.0-7.0); HEMATOCRIT 26.6 % (37.0-47.0); IMMATURE GRANULOCYTE % (AUTO) 0.3 % (0.0-5.0); LYMPHOCYTES # (AUTO) 1.1 K/uL (0.60-3.4); LYMPHOCYTES % (AUTO) 14.5 (10.0-50.0); MEAN CORPUSCULAR HEMOGLOBIN 25.8 pg (27.0-31.0); MEAN CORPUSCULAR HGB CONC 30.1 (31.8-35.4); MEAN CORPUSCULAR VOLUME 85.8 fl (81.0-99.0); MONOCYTES # (AUTO) 0.5 K/uL (0.4-2.0); MONOCYTES % (AUTO) 5.8 (0-10); NEUTROPHILS # (AUTO) 6.1 K/ul (2.0-6.9); NEUTROPHILS % (AUTO) 76.8 % (42.2-75.2); PLATELET COUNT 185 10^3/uL (140-440); RDW COEFFICIENT OF VARIATION 16.7 % (11.6-14.8); WHITE BLOOD COUNT 7.88 K/ul (4.6-10.2)
[2024-04-15 05:54] LABS: ALANINE AMINOTRANSFERASE 15.4 U/L (0-35); ALBUMIN 2.78 g/dL (3.5-5.0); ALKALINE PHOSPHATASE 56.5 U/L (53-141); ASPARTATE AMINO TRANSFERASE 24.5 U/L (14-36); BILIRUBIN,TOTAL 0.78 mg/dL (0.2-1.3); BLOOD UREA NITROGEN 30.8 mg/dL (7-17); CALCIUM 8.72 mg/dL (8.4-10.2); CHLORIDE 105.9 mmol/L (98-107); CREATININE 2.19 mg/dL (0.60-1.30); GLUCOSE 157.9 mg/dL (74-106); POTASSIUM 3.49 mmol/L (3.5-5.1); SODIUM 140.3 mmol/L (134.5-145); TOTAL PROTEIN 5.53 g/dL (6.3-8.2)
--- NOTE | 2024-04-15 11:34 | PCM.PROG ---
Date/Time Seen Date Seen by Provider: 04/15/24 Time Seen by Provider: 08:40 Provider Provider: ELISE COLBERT, [facility] Chief Complaint Chief Complaint: ACUTE CHF EXACEIBATION Subjective Subjective: Swelling continues to improve. No complaints today Objective Appearance: Positive No Apparent Distress Chest/Lungs: Positive Symmetrical With Equal Breath Sounds, Clear to Auscultation Bilaterally and Good Air Movement all 4 Lung [place] Heart: Positive RRR and Pulses Normal GI/: Positive Soft, Nontender, Bowel Sounds Normal and No Distention Musculoskeletal: Positive Other (+2 pitting edema BLE, wrinkling of skin present) Neurological: Positive Sensation Intact, Motor intact, Alert, Disorinted (at baseline) and Other (Generalized weakness) Vital Signs Vital Signs: Vital Signs: Last 24 Hours 04/14/24 13:00 04/14/24 14:00 04/14/24 18:00 Temperature 97.7 F 97.7 F Temperature Source Temporal Artery Scan Temporal Artery Scan Pulse Rate 79 60 Respiratory Rate 18 16 Blood Pressure 163/66 H 143/63 H Blood Pressure Mean 98 89 Blood Pressure Location Right Arm Right Arm Blood Pressure Position Supine Supine O2 Sat by Pulse Oximetry 95 97 Oxygen Delivery Method Room Air Room Air Height Weight Telemetry Type Remote Telemetry Telemetry Monitoring Continues Irregular Telemetry Rate (Approximate) 60-70 BPM EKG QRS Interval 0.08 Telemetry Strip Reading AFIB 04/14/24 19:00 04/14/24 20:05 04/14/24 21:18 Temperature 97.5 F L Temperature Source Temporal Artery Scan Pulse Rate 58 L Respiratory Rate 16 Blood Pressure 145/76 H Blood Pressure Mean 99 Blood Pressure Location Right Arm Blood Pressure Position Supine O2 Sat by Pulse Oximetry 95 Oxygen Delivery Method Room Air Room Air Height Weight Telemetry Type Remote Telemetry Telemetry Monitoring Continues Irregular Telemetry Rate (Approximate) 60-70 BPM EKG QRS Interval 0.06 Telemetry Strip Reading AFIB 04/15/24 01:00 04/15/24 05:16 04/15/24 07:00 Temperature 98.1 F Temperature Source Temporal Artery Scan Pulse Rate 76 Respiratory Rate 16 Blood Pressure 152/96 H Blood Pressure Mean 114 Blood Pressure Location Right Arm Blood Pressure Position Supine O2 Sat by Pulse Oximetry 96 Oxygen Delivery Method Room Air Height Weight Telemetry Type Remote Telemetry Remote Telemetry Telemetry Monitoring Continues Irregular Telemetry Rate (Approximate) 60-70 BPM 70-80 BPM EKG QRS Interval 0.06 0.08 Telemetry Strip Reading AFIB A-Fib 04/15/24 08:00 04/15/24 09:32 Temperature Temperature Source Pulse Rate Respiratory Rate Blood Pressure Blood Pressure Mean Blood Pressure Location Blood Pressure Position O2 Sat by Pulse Oximetry Oxygen Delivery Method Room Air Height 5 ft 5 in Weight 93 kg Telemetry Type Telemetry Monitoring Irregular Telemetry Rate (Approximate) EKG QRS Interval Telemetry Strip Reading Lab Results Lab Results: Lab Results: Last 24 Hours 04/15/24 05:16 WBC 7.88 RBC 3.10 L Hgb 8.0 L Hct 26.6 L MCV 85.8 MCH 25.8 L MCHC 30.1 L RDW Coeff of Temo 16.7 H Plt Count 185 Immature Gran % (Auto) 0.3 Neut % (Auto) 76.8 H Lymph % (Auto) 14.5 [place] % (Auto) 5.8 Eos % (Auto) 2.3 Baso % (Auto) 0.3 Neut # (Auto) 6.1 Lymph # (Auto) 1.1 [place] # (Auto) 0.5 Eos # (Auto) 0.2 Baso # (Auto) 0.0 Immature Gran # (Auto) 0.0 Sodium 140.3 Potassium 3.49 L Chloride 105.9 Carbon Dioxide 30.0 Anion Gap 7.89 BUN 30.8 H Creatinine 2.19 H Estimated GFR (MDRD) 21.00 BUN/Creatinine Ratio 14.06 Glucose 157.9 H Calcium 8.72 Total Bilirubin 0.78 AST 24.5 ALT 15.4 Alkaline Phosphatase 56.5 Total Protein 5.53 L Albumin 2.78 L Globulin 2.75 Albumin/Globulin Ratio 1.01 Additional Comments Additional Comments: I have independently reviewed and interpreted the labs/EKGs/imaging ordered during this hospital stay. I have reviewed outside records that are available in our EMR that pertain to medical stay including imaging/notes/labs from previous visits. Active Medications Active Medications: Medications Generic Name Dose Route Start Last Admin Trade Name Freq PRN Reason Stop Dose Admin Acetaminophen 650 mg 04/13/24 12:34 Acetaminophen 325 Mg Tablet PO Q4H PRN Mild Pain Atorvastatin Calcium 20 mg 04/14/24 09:00 04/15/24 08:02 Atorvastatin Calcium 20 Mg Tablet PO 20 mg DAILY ROCKY Administration Dextrose 50 ml 04/13/24 12:34 Dextrose 50 % In Water 50 Ml Disp.Syrin IVP ONCE PRN Unconscious Hypoglycemia Protocol Donepezil HCl 10 mg 04/14/24 09:00 04/15/24 08:02 Donepezil Hcl 10 Mg Tablet PO 10 mg DAILY ROCKY Administration Ferrous Sulfate 324 mg 04/14/24 09:00 04/15/24 08:01 Ferrous Sulfate 324 Mg Tablet.Dr PO 324 mg DAILY ROCKY Administration Furosemide 20 mg 04/14/24 21:00 04/15/24 08:04 Furosemide Inj 20 Mg/2 Ml Vial IVP 20 mg Q12HR ROCKY Administration Insulin Glargine 10 unit 04/14/24 09:00 04/15/24 08:05 Insulin Glargine,Hum.Rec.Anlog 100 Units/Ml SUBCUT 10 unit QAM ROCKY Administration Levothyroxine Sodium 75 mcg 04/14/24 06:00 04/15/24 05:05 Levothyroxine Sodium 75 Mcg Tablet PO 75 mcg QDAC2 ROCKY Administration Losartan Potassium 100 mg 04/14/24 09:00 04/15/24 08:02 Losartan Potassium 100 Mg Tablet PO 100 mg DAILY ROCKY Administration Memantine 10 mg 04/14/24 21:30 04/15/24 08:02 Memantine Hcl 10 Mg Tablet PO 10 mg BID ROCKY Administration Metoprolol Succinate 25 mg 04/14/24 09:00 04/15/24 08:03 Metoprolol Succinate 25 Mg Tab.Er.24h PO 25 mg DAILY ROCKY Administration Non-Formulary Medication 100 mg 04/14/24 09:00 04/15/24 08:03 Cefpodoxime PO 100 mg DAILY ROCKY Administration Nystatin 1 applic 04/13/24 21:00 04/15/24 08:04 Nystatin 15 Gm Cream TP 1 applic BID ROCKY Administration Ondansetron HCl 4 mg 04/13/24 12:34 Ondansetron Hcl/Pf 4 Mg/2 Ml Sdv IVP Q6H PRN Nausea / Vomiting Oxybutynin Chloride 5 mg 04/14/24 09:00 04/15/24 08:01 Oxybutynin Chloride 5 Mg Tab.Er.24 PO 5 mg DAILY ROCKY Administration Rivaroxaban 15 mg 04/14/24 09:00 04/15/24 07:59 Rivaroxaban 10 Mg Tablet PO 15 mg DAILY ROCKY Administration Sodium Chloride 1 syr 04/13/24 21:00 04/15/24 05:05 0.9% Sodium Chloride 10 Ml Disp.Syrin IVF 1 syr Q8HR ROCKY Administration Plan Plan: 1. Acute HF exacerbation - Echo completed yesterday awaiting final report, will decrease lasix to home dose starting tomorrow from lasix 20 mg Q12H IVP, will diurese gently due to her renal disease. I&O, diabetic diet. 2. Recent UTI due to E coli - Continue cefpodoxime, stop on 04/16 3. DMT2 - insulin dependent. Recent changes in insulin therapy. Will continue with lantus 10 units only and see how her sugars do. 4. A fib - Cont home meds 5. Hypertension - Cont home meds, metoprolol dose recently decreased due to bradycardia 6. Hypothyroidism - Cont home meds DVT Prophylaxis: Xarelto Dispo: D/c to [place] tomorrow if medically stable Review Statement Review Statement: I have personally discussed and reviewed the patient's visit/currently labs/imaging/decision making with Dr. Abdullahi, my supervising attending. Greater that 50 minutes spent with patient, 50% of the time spent with this patient was devoted to counseling and coordination of care.
--- NOTE | 2024-04-15 12:13 | ECHO2D ---
Date of Exam: 04/14/2024 Ordering Physician: HOSPITALIST-/ PCP ELZA Room #: 112 Reason for Echo: FLUID OVERLOAD, HTN, DM2, AFIB, CKD, HYPOTHYROIDISM M-Mode Normal Adult Results LV Dimensions Normal Adult Results AoV Opening excursions >1.6 1.5 LVEDD-base- 3.5-5.8 4.3 Ao root dimensions 2.0-3.7 3.0 LVESD-base- 3.1-4.6 L. Atrium dimensions 1.9-3.8 4.9 Post. Wall thickness 0.8-1.1 1.2 IV septum (thickness) 0.7-1.2 1.2 Post. Wall excursion 0.72-1.3 NORMAL Septal motion NORMAL Systolic motion R. Ventricular cavity 1.5-2.0 NORMAL LVEF 60% 67% Paradoxical septal wall motion NORMAL 2-D : CALCIFIC AORTIC VALVES--NO STENOSIS, NORMAL MITRAL, TRICUSPID AND PULMONARY VALVES, NORMAL LEFT VENTRICLE SIZE AND LEFT VENTRICLE CONTRACTILITY--NO EFFUSION, NO THROMBUS--ENLARGED LEFT ATRIAL CAVITY M-MODE: MV: NORMAL AV: CALCIFIC AORTIC VALVES--NO STENOSIS TV: NORMAL PV: NORMAL CHAMBER SIZE: ENLARGED LEFT ATRIAL CAVITY WALL MOTION: NORMAL PERICARDIUM: NORMAL INTERPRETATION: 1. BORDERLINE LEFT VENTRICLE HYPERTROPHY WITH ENLARGED LEFT ATRIAL CAVITY 2. CALCIFIC AORTIC VALVES--NO STENOSIS 3. TRICUSPID VALVE, PULMONARY VALVE AND MITRAL VALVES--NORMAL 4. NORMAL LEFT VENTRICLE SIZE AND LEFT VENTRICLE CONTRACTILITY MTDD
[2024-04-16] MEDS: LASIX TAB PO SCH (05:47)
[2024-04-16 08:35] LABS: BASOPHILS % (AUTO) 0.5 % (0.0-3.0); EOSINOPHILS # (AUTO) 0.2 K/ul (0.0-0.7); EOSINOPHILS % (AUTO) 3.3 % (0.0-7.0); HEMATOCRIT 29.4 % (37.0-47.0); HEMOGLOBIN 8.9 g/dl (12.0-16.0); IMMATURE GRANULOCYTE % (AUTO) 0.3 % (0.0-5.0); LYMPHOCYTES % (AUTO) 15.7 (10.0-50.0); MEAN CORPUSCULAR HEMOGLOBIN 26.3 pg (27.0-31.0); MEAN CORPUSCULAR HGB CONC 30.3 (31.8-35.4); MEAN CORPUSCULAR VOLUME 86.7 fl (81.0-99.0); MONOCYTES # (AUTO) 0.3 K/uL (0.4-2.0); MONOCYTES % (AUTO) 4.6 (0-10); NEUTROPHILS % (AUTO) 75.6 % (42.2-75.2); PLATELET COUNT 227 10^3/uL (140-440); RDW COEFFICIENT OF VARIATION 16.5 % (11.6-14.8); RED BLOOD COUNT 3.39 10^6/ul (4.20-5.40); WHITE BLOOD COUNT 6.58 K/ul (4.6-10.2)
[2024-04-16 08:53] LABS: ALANINE AMINOTRANSFERASE 14.7 U/L (0-35); ALBUMIN 3.18 g/dL (3.5-5.0); ALKALINE PHOSPHATASE 56.1 U/L (53-141); ASPARTATE AMINO TRANSFERASE 22.9 U/L (14-36); BILIRUBIN,TOTAL 0.64 mg/dL (0.2-1.3); BLOOD UREA NITROGEN 35.6 mg/dL (7-17); CALCIUM 8.94 mg/dL (8.4-10.2); CARBON DIOXIDE 32.1 mmol/L (22-30.0); CHLORIDE 102.7 mmol/L (98-107); CREATININE 2.24 mg/dL (0.60-1.30); GLUCOSE 238.2 mg/dL (74-106); POTASSIUM 3.71 mmol/L (3.5-5.1); SODIUM 140.8 mmol/L (134.5-145); TOTAL PROTEIN 6.11 g/dL (6.3-8.2)
[2024-04-16] MEDS ORDERED: LASIX TAB PO SCH (09:00)
--- NOTE | 2024-04-16 09:33 | DCSUM ---
Admission Date Admission Date: 04/13/24 Discharge Date Discharge Date: 04/16/24 Admission Diagnosis Admission Diagnosis: 1. Acute HF exacerbation 2. Recent UTI due to E coli 3. DMT2 4. A fib 5. Hypertension 6. Hypothyroidism Discharge Diagnosis Discharge Diagnosis: 1. Acute HF exacerbation - Echo completed yesterday awaiting final report, will decrease lasix to home dose starting tomorrow from lasix 20 mg Q12H IVP, will diurese gently due to her renal disease. I&O, diabetic diet. 2. Recent UTI due to E coli - Continue cefpodoxime, stop on 04/16 3. DMT2 - insulin dependent. Recent changes in insulin therapy. Will continue with lantus 10 units only and see how her sugars do. 4. A fib - Cont home meds 5. Hypertension - Cont home meds, metoprolol dose recently decreased due to bradycardia 6. Hypothyroidism - Cont home meds Hospital Provider Hospital Provider: EL[facility] COLB[facility], [facility] Physician Primary Care Physician: RAUL NEWTON MD Summary of History and Physical Summary of History and Physical: Patient is an 83 year old female from home with pmhx of hypertension, DMT2, a fib, hypothyroidism, CKD, and dementia who presents for unable to stand out of her chair and worsened lower ext edema/pain. Patient was admitted from 04/10-04/12 for hypoglycemia. Walked 100 ft with therapy during that stay. Had received D5LR for just under 24 hours. Today her lower ext are found to be more edematous causing her to be unable to ambulate. She denies sob, however she is an unreliable historian. at bedside provides the history. They have been failing at home for a while now. He is agreeable to seeking rehab placement. Pt BNP elevated at 2000, which is above her baseline. She was given 20 of lasix IV. states she's had her morning meds already. Admitted to med surg. Hospital Course Subjective: During stay, patient was diuresed with lasix 20 mg Q8H then tapered to Q12H, and now on home PO dose of 20 mg. Edema to BLE greatly improved. Echo completed and showed EF 67%. Completed course of cefpodoxime as of today for UTI due to E. coli. No episodes of hypoglycemia during this admission. Has tolerated 10 unit of lantus daily well. Metoprolol was decreased during last admission due to bradycardia and has tolerated well. No changes to home medications. D/c to [facility] for rehab due to continued decline at home for inability to perform ADLs. Appearance: Pleasant, No Apparent Distress and Alert HEENT: MMM, Supple and No JVD CVS: No Murmur Abdomen: Soft, Non-Tender and No Distention Respiratory: No Dyspnea Extremities: No Edema Vital Signs: Most Recent Vital Signs Temperature 97.6 F 04/16/24 05:10 Temperature Source Temporal Artery Scan 04/16/24 05:10 Temperature Source Infrared 04/13/24 10:09 Pulse Rate 63 04/16/24 05:10 Respiratory Rate 17 04/16/24 05:10 Blood Pressure 170/83 H 04/16/24 05:10 Blood Pressure Mean 112 04/16/24 05:10 Blood Pressure Left Arm 155/72 04/13/24 13:58 Blood Pressure Location Right Arm 04/16/24 05:10 Blood Pressure Position Supine 04/16/24 05:10 O2 Sat by Pulse Oximetry 96 04/16/24 05:10 Oxygen Delivery Method Room Air 04/16/24 05:10 Height 5 ft 5 in 04/15/24 09:32 Weight 93 kg 04/15/24 09:32 Telemetry Type Remote Telemetry 04/16/24 07:00 Telemetry Monitoring Continues 04/16/24 07:00 Irregular Telemetry Rate (Approximate) 60-70 BPM 04/15/24 13:00 Telemetry Heart Rate 56 L 04/16/24 07:00 EKG KS Interval 0.18 04/16/24 07:00 EKG QRS Interval 0.06 04/16/24 07:00 Telemetry Strip Reading SB 04/16/24 07:00 Imaging: EXAM: FRONTAL CHEST RADIOGRAPH(S). 1 VIEW. Findings: Heart size normal. No pneumothorax or pleural effusion. No focal air space consolidation. Impression: Please see above. Date of Exam: 04/14/2024Ordering Physician: HOSPITALIST-/ PCP ELZA Room #: 112 Reason for Echo: FLUID OVERLOAD, HTN, DM2, AFIB, CKD, HYPOTHYROIDISM M-Mode Normal Adult Results LV Dimensions Normal Adult Results AoV Opening excursions >1.6 1.5 LVEDD-base- 3.5-5.8 4.3 Ao root dimensions 2.0-3.7 3.0 LVESD-base- 3.1-4.6 L. Atrium dimensions 1.9-3.8 4.9 Post. Wall thickness 0.8-1.1 1.2 IV septum (thickness) 0.7-1.2 1.2 Post. Wall excursion 0.72-1.3 NORMAL Septal motion NORMAL Systolic motion R. Ventricular cavity 1.5-2.0 NORMAL LVEF 60% 67% Paradoxical septal wall motion NORMAL 2-D : CALCIFIC AORTIC VALVES--NO STENOSIS, NORMAL MITRAL, TRICUSPID AND PULMONARY VALVES, NORMAL LEFT VENTRICLE SIZE AND LEFT VENTRICLE CONTRACTILITY--NO EFFUSION, NO THROMBUS--ENLARGED LEFT ATRIAL CAVITY M-MODE: MV: NORMAL AV: CALCIFIC AORTIC VALVES--NO STENOSIS TV: NORMAL PV: NORMAL CHAMBER SIZE: ENLARGED LEFT ATRIAL CAVITY WALL MOTION: NORMAL PERICARDIUM: NORMAL INTERPRETATION: 1. BORDERLINE LEFT VENTRICLE HYPERTROPHY WITH ENLARGED LEFT ATRIAL CAVITY 2. CALCIFIC AORTIC VALVES--NO STENOSIS 3. TRICUSPID VALVE, PULMONARY VALVE AND MITRAL VALVES--NORMAL 4. NORMAL LEFT VENTRICLE SIZE AND LEFT VENTRICLE CONTRACTILITY Lab Results Last 24 Hours: 04/16/24 08:32 WBC 6.58 RBC 3.39 L Hgb 8.9 L Hct 29.4 L MCV 86.7 MCH 26.3 L MCHC 30.3 L RDW Coeff of Temo 16.5 H Plt Count 227 Immature Gran % (Auto) 0.3 Neut % (Auto) 75.6 H Lymph % (Auto) 15.7 Scott % (Auto) 4.6 Eos % (Auto) 3.3 Baso % (Auto) 0.5 Neut # (Auto) 5.0 Lymph # (Auto) 1.0 Scott # (Auto) 0.3 L Eos # (Auto) 0.2 Baso # (Auto) 0.0 Immature Gran # (Auto) 0.0 Sodium 140.8 Potassium 3.71 Chloride 102.7 Carbon Dioxide 32.1 H Anion Gap 9.71 BUN 35.6 H Creatinine 2.24 H Estimated GFR (MDRD) 21.00 BUN/Creatinine Ratio 15.89 Glucose 238.2 H Calcium 8.94 Total Bilirubin 0.64 AST 22.9 ALT 14.7 Alkaline Phosphatase 56.1 Total Protein 6.11 L Albumin 3.18 L Globulin 2.93 Albumin/Globulin Ratio 1.08 Discharge Instructions Discharge Planning: Discharge Planning > 40 minutes If patient is discharged with left ventricular systolic dysfunction: No Discharged with a beta janine? [] If no, why not? [] Discharged with an gavi/arb? [] If no, why not? [] Diagnosis: CHF Exacerbation Diet: Diabetic Activity: as tolerated PT and OT to eval and treat Follow-up with PCP within 1 week. No medication changes or new Rx Discharge Medications: Medications at Discharge (Home Meds & RX) atorvastatin 20 mg tablet 20 mg PO DAILY 04/26/21 nystatin 100,000 unit/gram topical cream 1 applic topical BID #30 grams 06/29/23 rivaroxaban 15 mg tablet (Xarelto) 15 mg PO DAILY 08/24/23 ferrous sulfate 325 mg (65 mg iron) tablet 325 mg PO QDAY #7 tabs 12/19/23 oxybutynin chloride 5 mg tablet,extended release 24 hr 5 mg PO DAILY #90 tabs 01/25/24 blood sugar diagnostic (Pharmacist Choice Glucose Test Strips) #100 ea 02/05/24 blood-glucose meter #1 ea 02/05/24 lancets 21 gauge (Color Lancets) #100 ea 02/05/24 cholecalciferol (vitamin D3) 1,250 mcg (50,000 unit) capsule See Rx Instructions .Route .COMPLEX #12 caps 02/22/24 furosemide 20 mg tablet 20 mg PO DAILY #30 tabs 02/22/24 losartan 100 mg tablet 100 mg PO DAILY #90 tabs 02/22/24 memantine ER 28 mg-donepezil 10 mg capsule sprinkle,ext.release 24 hr (Namzaric) See Rx Instructions .Route .COMPLEX #90 caps 02/22/24 levothyroxine 75 mcg tablet 75 mcg PO DAILY #30 tabs 03/21/24 pen needle, diabetic 31 gauge x 3/16" (BD Ultra-Fine Mini Pen Needle) #100 inserts 03/21/24 metoprolol succinate 25 mg tablet,extended release 24 hr 25 mg PO DAILY #30 tabs 04/12/24 insulin glargine-yfgn 100 unit/mL (3 mL) subcutaneous pen 10 unit subcut QAM 04/13/24 Discharge Plan Discharge Discharge Orders: Discharge Patient (ONCE); Ordered 04/16/24 Ordered By: ILIA BARKER Activity Restrictions/Additional Instructions: Diagnosis: CHF Exacerbation Diet: Diabetic Activity: as tolerated PT and OT to eval and treat Follow-up with PCP within 1 week. No medication changes or new Rx Instructions: Heart Failure (GEN) Patient Disposition: TRANSFER SNF Prescriptions: Continued nystatin 100,000 unit/gram cream 1 applic topical BID Qty: 30 1RF ferrous sulfate 325 mg (65 mg iron) tablet 325 mg PO QDAY Qty: 7 0RF oxybutynin chloride 5 mg tablet extended release 24hr 5 mg PO DAILY Qty: 90 1RF (DME) blood-glucose meter Kit See Rx Instructions .ROUTE Qty: 1 0RF Rx Instructions: As directed DM2 E11.9 TEST TWO TIMES DAILY (DME) Pharmacist Choice Strip See Rx Instructions .ROUTE Qty: 100 4RF Rx Instructions: As directed DM2 E1.9 TEST TWO TIMES DAILY (DME) lancets [Color Lancets] 21 gauge misc See Rx Instructions .ROUTE Qty: 100 3RF Rx Instructions: As directed DM2 E11.9 TEST TWO TIMES DAILY cholecalciferol (vitamin D3) 1,250 mcg (50,000 unit) capsule See Rx Instructions .ROUTE .COMPLEX Qty: 12 0RF Dose Instruction: TAKE ONE CAPSULE ORALLY EVERY WEEK FOR 3 MONTHS Rx Instructions: TAKE ONE CAPSULE ORALLY EVERY WEEK FOR 3 MONTHS Namzaric 28-10 mg capsule,sprinkle,ER 24hr See Rx Instructions .ROUTE .COMPLEX Qty: 90 1RF Dose Instruction: TAKE ONE CAPSULE AT BEDTIME Rx Instructions: TAKE ONE CAPSULE AT BEDTIME furosemide 20 mg tablet 20 mg PO DAILY Qty: 30 2RF losartan 100 mg tablet 100 mg PO DAILY Qty: 90 1RF levothyroxine 75 mcg tablet 75 mcg PO DAILY Qty: 30 2RF (DME) pen needle, diabetic [BD Ultra-Fine Mini Pen Needle] 31 gauge x 3/16" needle See Rx Instructions .ROUTE .COMPLEX Qty: 100 5RF Dose Instruction: USE DIRECTED TWICE DAILY Rx Instructions: USE DIRECTED TWICE DAILY insulin glargine-yfgn 100 unit/mL (3 mL) insulin pen 10 unit subcut QAM atorvastatin 20 mg tablet 20 mg PO DAILY Xarelto 15 mg tablet 15 mg PO DAILY metoprolol succinate 25 mg tablet extended release 24 hr 25 mg PO DAILY Qty: 30 0RF Discontinued cefpodoxime 100 mg tablet 100 mg PO DAILY 5 Days Qty: 5 0RF Rx Instructions: must administer with a meal/food Did you review [place] CLAIMS PROCESSOR for ALL controlled substances?: No Discussed opioids are addictive and Narcan is available by prescription or from pharmacy.: No Condition: Stable
[2024-04-16 10:00] VITALS: BP 158/75; PULSE 66; RESP 16; TEMP 97.3
[2024-04-16] MEDS ORDERED: ARICEPT PO SCH ×2 (21:00)
[2024-04-16] MEDS ORDERED: NAMENDA PO SCH (21:00)
== END 2024-04-16 13:20 | DRG 291 ==
LOC: ED 10:07 → MEDSURG B 12:58
PROVIDERS: ADMIT Hospitalist; ATTEND Nurse Practitioner Family